=== PATIENT | male | born 1955 | race Caucasian/White ===

== ENCOUNTER 2018-02-11 22:09 | Emergency (ER) | payer MEDICARE ==
[~2018-02-11] VITALS: Ht 195.6 cm; Wt 115.7 kg
[~2018-02-11 22:09] MED LIST: ASPIRIN CHEW81 MG PO; B COMPLETE1 EACH PO; DAILY VITAMIN1 EAC3 PO; FENTANYL1 EAC1; LISINOPRIL2.5 MG PO; PERCOCET 10-321 EACH
[2018-02-11] MEDS ORDERED: KETOROLAC TROMETHAMINE 30 MG/ML VIAL IV STA (23:20)
[2018-02-11] MEDS ORDERED: PANTOPRAZOLE 40 MG 10ML VIAL IV STA (23:20)
--- NOTE | 2018-02-12 00:15 | Diagnostic Imaging Report ---
CHEST 2 VIEWS, Technique: CHEST 2 VIEWS Comparison: None Clinical history: Left upper quadrant abdominal pain DISCUSSION: Normal cardiomediastinal silhouette. Hyperinflation versus large lung volumes. No consolidation or edema. No pleural effusion or pneumothorax. IMPRESSION: No acute abnormality Signed by: Dr Thalia Perales MD on 02/12/2018 12:11 AM
--- NOTE | 2018-02-12 00:24 | Diagnostic Imaging Report ---
EXAM: CT ABDOMEN/PELVIS WO DATE: 02/11/2018 11:20 PM INDICATION: Abdominal pain left upper quadrant/flank COMPARISON: None TECHNIQUE: The abdomen and pelvis were scanned using a multidetector helical scanner. Coronal and sagittal reformations were obtained. Routine protocol performed. IV Contrast: 0 ml Isovue 300/370 FINDINGS: Lack of IV contrast decreases sensitivity in evaluating abdominal and pelvic organs. LOWER THORAX: Calcified left lung granuloma. Mild mosaic which can made seen with small airways disease. LIVER/BILIARY: Several liver cysts. No biliary ductal dilation GALLBLADDER: Unremarkable SPLEEN: Unremarkable PANCREAS: Unremarkable ADRENALS: No nodules KIDNEYS: No hydronephrosis or stones. Posterior 1.8 cm left renal cystic lesion. GI TRACT: No wall thickening or evidence of obstruction. Appendix is not visualized. VESSELS: Moderate atherosclerotic calcification. PERITONEUM/RETROPERITONEUM: No free air or fluid LYMPH NODES: No lymphadenopathy REPRODUCTIVE ORGANS/BLADDER: Prostate is normal in size. Mild circumferential bladder wall thickening. SOFT TISSUES: Unremarkable BONES: Postsurgical changes status post lumbar decompression, right iliac bone harvest and remaining fractured L2 particular screw. Minimal anterolisthesis of L3 over L4, retrolisthesis of L2 over L3. IMPRESSION: Mild nonspecific branch of bladder wall thickening, which can be seen with cystitis. Otherwise no acute abnormality. No nephroureterolithiasis. Signed by: Dr Thalia Perales MD on 02/12/2018 12:20 AM
[2018-02-12 00:28] LABS: BASOPHILS # (AUTO) 0.1 (0.0-0.1); BASOPHILS % 0.9 % (0.0-1.0); EOSINOPHILS # (AUTO) 0.3 (0.0-0.4); EOSINOPHILS % 3.2 % (0.0-6.0); HEMATOCRIT 40.4 % (38.2-49.6); HEMOGLOBIN 14.1 g/dL (14.0-18.0); LYMPHOCYTES % 33.7 % (18.0-39.1); MEAN CORPUSCULAR HEMOGLOBIN 32.7 pg (28-32); MEAN CORPUSCULAR HGB CONC 34.9 g/dL (31-35); MEAN CORPUSCULAR VOLUME 93.7 fL (81-99); MONOCYTES # (AUTO) 0.8 (0.2-0.8); MONOCYTES % 8.5 % (4.4-11.3); NEUTROPHILS # (AUTO) 4.7 (2.1-6.9); NEUTROPHILS % 53.2 % (38.7-80.0); PLATELET COUNT 258 x10e3/uL (140-360); RED BLOOD COUNT 4.31 x10e6/uL (4.3-5.7); RED CELL DISTRIBUTION WIDTH 12.7 % (11.7-14.4)
[2018-02-12 00:37] LABS: CLARITY,URINE CLEAR (CLEAR); COLOR,URINE YELLOW (YELLOW)
[2018-02-12 00:38] LABS: BILIRUBIN,URINE NEGATIVE (NEGATIVE); KETONES,URINE NEGATIVE (NEGATIVE); LEUKOCYTE ESTERASE ,URINE NEGATIVE (NEGATIVE); NITRITE,URINE NEGATIVE (NEGATIVE); PROTEIN,URINE DIPSTICK NEGATIVE (NEGATIVE); URINE UROBILINOGEN 0.2 mg/dL (0.2 - 1)
[2018-02-12 00:39] LABS: BACTERIA,URINE RARE /HPF; EPITHELIAL CELLS,URINE RARE /LPF; WBC,URINE (MAN) 0-5 /HPF (0-5)
[2018-02-12 00:42] LABS: INR 0.96
[2018-02-12 00:43] LABS: PARTIAL THROMBOPLASTIN TIME 32.3 seconds (23.8-35.5)
[2018-02-12 00:51] LABS: ALANINE AMINOTRANSFERASE 15 IU/L (0-55); ALBUMIN 4.3 g/dL (3.5-5.0); ALBUMIN/GLOBULIN RATIO 1.2 (0.8-2.0); ALKALINE PHOSPHATASE 71 IU/L (40-150); AMYLASE 41 U/L (25-125); ANION GAP 16.5 mmol/L (8-16); BLOOD UREA NITROGEN 15 mg/dL (7-26); BUN/CREATININE RATIO 15 (6-25); CARBON DIOXIDE 26 mmol/L (22-29); CHLORIDE 102 mmol/L (98-107); CREATINE KINASE 146 IU/L (30-200); EST GLOMERULAR FILTRATION RATE > 60 ML/MIN (60-); GLUCOSE 106 mg/dL (74-118); LIPASE 22 U/L (8-78); POTASSIUM 4.5 mmol/L (3.5-5.1); SODIUM 140 mmol/L (136-145)
[2018-02-12 02:02] VITALS: BP 147/98
== END 2018-02-12 02:07 | disposition home or self-care (01) ==
LOC: ER 22:09
DX: N23 Unspecified renal colic (principal); R31.29 Other microscopic hematuria; F17.200 Nicotine dependence, unspecified, uncomplicated; I11.0 Hypertensive heart disease with heart failure; I50.9 Heart failure, unspecified; I25.2 Old myocardial infarction; G89.29 Other chronic pain; M54.9 Dorsalgia, unspecified
CPT/HCPCS: 36415; 71046; 74176; 80053; 81001; 82150; 82550; 82553; 83690; 83735; 83880; 84484; 85025; 85610; 85730; 93005; 99284; J1885

== ENCOUNTER → 2018-03-02 | Outpatient (CLI) | payer MEDICARE ==
--- NOTE | 2018-03-02 18:04 | Diagnostic Imaging Report ---
PROCEDURE:TESTICULAR ULTRASOUND COMPARISON:None. INDICATIONS:EPIDIDYMITIS, GEN. HYPERHIDROSIS TECHNIQUE: Tinoco-scale and color doppler images of the testicles and scrotal contents were obtained. Duplex imaging with spectral waveform analysis was performed of the testicular arteries and veins. FINDINGS: RIGHT SCROTUM: Testicle: 4.7 x 2.1 x 3.1 cm. Normal echogenicity. Normal vascularity. No focal lesions or calcifications. Epididymal head: 1.4 x 1.2 x 2.1 cm. Heterogeneous echogenicity. No focal lesions or increased vascularity. Hydrocele: None Varicocele: A right varicocele is identified. LEFT SCROTUM: Testicle: 4.2 x 2.0 x 3.2 cm. Normal echogenicity. Normal vascularity. No focal lesions or microcalcifications. Epididymal head: 0.8 x 1.2 x 0.7 cm. 0.7 x 0.4 x 0.4 cm cystic, anechoic lesion in the epididymal head Hydrocele: None Varicocele: None. Normal bilateral arterial and venous flow is documented on color Doppler Overlying scrotal skin is unremarkable. No sonographic evidence of inguinal hernia bilaterally.. CONCLUSION: 1. Enlarged right epididymal head with heterogeneous echotexture. No focal lesions or increased vascularity are noted. This may represent a partially treated epididymitis. 2. Normal bilateral testicular size and echogenicity. No focal lesions. Normal bilateral arterial and venous flow, with low likelihood of torsion. 3. 0.7 cm left epididymal head cyst versus spermatocele. 4. Right varicocele. Henry Valero M.D. Dictated by: Henry Valero M.D. on 03/02/2018 at 18:06 Electronically approved by: Henry Valero M.D. on 03/02/2018 at 18:06
--- NOTE | 2018-03-02 18:04 | Diagnostic Imaging Report ---
PROCEDURE:TESTICULAR DOPPLER ULTRASOUND COMPARISON:None. INDICATIONS:EPIDIDYMITIS, GEN. HYPERHIDROSIS CONCLUSION: Please see previously dictated report under testicular ultrasound performed same date. Henry Valero M.D. Dictated by: Henry Valero M.D. on 03/02/2018 at 18:07 Electronically approved by: Henry Valero M.D. on 03/02/2018 at 18:07
== END ==
LOC: US 16:44
PROVIDERS: ATTEND Family Medicine
DX: N45.1 Epididymitis (principal); R61 Generalized hyperhidrosis
CPT/HCPCS: 76870; 93976

== ENCOUNTER → 2018-06-11 | Outpatient (CLI) | payer MEDICARE ==
[~2018-06-11] MED LIST changes: +FENTANYL CITRATE/PF 100MCG/2 ML INJ ONE; +GADOBENATE DIMEGLUMINE 1 ML IV ONE; +KETAMINE HCL INJ 50 MG/ML 10 ML VIAL ONE; +LACTATED RINGER'S 1,000 ML ONE; +LIDOCAINE HCL 2% LOCAL INJ 5 ML SDV VIAL INJ ONE; +MIDAZOLAM HCL 2 MG/2 ML VIAL ONE; +PROPOFOL IV EMULSION 10 MG/ML 20 ML VIAL ONE
[2018-06-11 14:33] LABS: BLOOD UREA NITROGEN 14 mg/dL (7-26); BUN/CREATININE RATIO 12 (6-25); CREATININE, SERUM 1.14 mg/dL (0.72-1.25); EST GLOMERULAR FILTRATION RATE > 60 ML/MIN (60-)
--- NOTE | 2018-06-12 08:02 | Diagnostic Imaging Report ---
History: Low back pain Comparison studies: Reconstructions of the CT of the abdomen on 02/11/2018 Technique: Sagittal, coronal and axial T2 , sagittal T1 and IR, axial spin density oblique. Intravenous contrast: None Findings: Number of lumbar vertebral bodies:5 Alignment: Mild straightening of the usual lordosis is associated with 3 mm retrolisthesis of L2 on L3 and 2 mm anterolisthesis of L3 on L4. No scoliosis Soft tissues: No T2 hyperintense inflammatory changes. Paraspinal muscles: Diffuse fatty infiltrated from L2 through S1.. Lower thoracic cord:Normal in signal and morphology. The tip of the conus is at mid and 1. Cauda equina: No masses. No arachnoiditis. Postsurgical changes: Bilateral laminectomy defects from L2 to L4. The remnant of a pedicular screw remains in place on the left at L2 The posterior elements are degenerated and/or fused from L2 through S1 (refer to the CT) Vertebrae: A T1 hyperintense hemangioma involves most of the L2 vertebral body to the right of midline. A smaller 5 mm hemangioma is seen along the superior endplate of T12. No compression fractures, infection or neoplasm. Degenerative changes: L1-L2: Mildly degenerated disc. Moderate spinal canal but mild bilateral foraminal stenosis due to a disc bulge. No disc herniation. There are small effusions in the mildly degenerated facet joints. L2-L3: Moderately degenerated disc. A 1 cm left subarticular disc protrusion indents the thecal sac and probably compresses the left L3 nerve root. The spinal canal has been decompressed. L3-L4: Mildly degenerated disc. The spinal canal has been decompressed. No significant foraminal stenosis. L4-L5: Mildly degenerated disc. The spinal canal has been decompressed. No significant foraminal stenosis. No disc herniation L5-S1: Moderately degenerated disc. Patent spinal canal and foramina. No disc herniation Partially visualized sacrum: No signal abnormalities. Incidental findings: Multiple nonenhancing T2 hyperintense cysts in the partially visualized kidneys. IMPRESSION: No previous lumbar spine MRIs available for comparison. 1. The discs are degenerated from L1 through S1. 2. Patient status post bilateral laminectomies from L2 to L4. The posterior elements are fused and degenerated from L2 to S1. A remnant of a pedicular screw remains in place on the left at L2. The spinal canal has been decompressed but there is grade 1 retrolisthesis of L2 on L3 and grade 1 anterolisthesis of L3 on L4. 3. Moderate spinal canal stenosis, mild bilateral foraminal stenosis and mild bilateral facet arthrosis with small effusions at L1-L2. 4. A 1 cm left subarticular protrusion at L2-3 indents the sac and compresses the left L3 nerve root. 5. No additional significant abnormalities Signed by: Dr. Girish Saldivar M.D. on 06/12/2018 7:59 AM
== END ==
LOC: MRI 13:27
PROVIDERS: ATTEND Family Medicine
DX: M47.15 Other spondylosis with myelopathy, thoracolumbar region (principal)
CPT/HCPCS: 36415; 72158; 82565; 84520; 93005; J2001; J2250; J7120

== ENCOUNTER → 2018-07-19 | Outpatient (CLI) | payer MEDICARE ==
[~2018-07-19] MED LIST changes: -FENTANYL CITRATE/PF 100MCG/2 ML INJ ONE; -GADOBENATE DIMEGLUMINE 1 ML IV ONE; -KETAMINE HCL INJ 50 MG/ML 10 ML VIAL ONE; -LACTATED RINGER'S 1,000 ML ONE; -LIDOCAINE HCL 2% LOCAL INJ 5 ML SDV VIAL INJ ONE; -MIDAZOLAM HCL 2 MG/2 ML VIAL ONE; -PROPOFOL IV EMULSION 10 MG/ML 20 ML VIAL ONE
--- NOTE | 2018-07-19 15:50 | Diagnostic Imaging Report ---
EXAMINATION: CT of the lumbar and thoracic spine HISTORY: Mid back and low back pain, left hip pain. Prior spine surgery COMPARISON: Lumbar spine MRI on 06/21/2018 and thoracic spine MRI on 03/21/2014. TECHNIQUE: Multidetector helical axial images were obtained without contrast from T1 to S1. The images were reconstructed using bone and soft tissue algorithms and were viewed in axial, sagittal, and coronal planes. Dose modulation, iterative reconstruction, and/or weight based adjustment of the mA/kV was utilized to reduce the radiation dose to as low as reasonably achievable. FINDINGS: Alignment: Normal thoracic kyphosis. Straightening of the lumbar lordosis. Grade 1 anterolisthesis at L3-L4 and retrolisthesis at L2-L3. S-shaped scoliosis mild midthoracic dextroscoliosis in, thoracolumbar levoscoliosis and again dextroscoliosis centered at L2. Vertebral bodies: Prominent subchondral sclerosis and endplate degenerative changes at L1-L2 and L2-L3. Paraspinal muscles: Severe atrophy of the paraspinal muscles from L3 to the sacrum. Degenerative changes: Thoracic spine: Facet arthrosis and scoliosis result in mild foraminal narrowing on the left side at T8-T9 and T9-T10. Lumbar spine: L1-L2: Decreased disc height, symmetric disc bulge, ligamenta flava thickening and facet arthrosis. Moderate spinal canal and moderate foraminal stenoses.. L2-L3: Decompressive laminectomy, bilateral facet arthrosis, grossly unchanged superiorly migrated left subarticular disc extrusion, better visualized on MRI dated 06/11/2018. . Persistent mild foraminal stenosis. Again a screw fragment is seen within the left pedicle/vertebral body of L2. No posterior fusion. L3-L4: Decompressive bunionectomy. Solid posterior fusion on the left . Disc bulge and facet arthrosis. Moderate left foraminal stenosis. L4-L5: Decompressive laminectomy. Interbody and posterior fusion. No stenoses. L5-S1: Solid interbody and posterior fusion. No stenoses. Radiopaque possible grafting material posterior to the bone graft is seen bilaterally. IMPRESSION: No significant interval change compared to MRI on 06/11/2018. 1. Mild foraminal stenoses on the left at T8-T9 and T9-T10 due to degenerative changes and scoliosis. 2. Thoracic and lumbar spine scoliosis as detail above. 3. Grade 1 retrolisthesis at L2-L3 and anterolisthesis at L3-L4. 4. Moderate degenerative spinal canal and foraminal stenosis at L1-L2. 5. Decompressive laminectomy from L2 to L4, solid interbody and posterior fusion at L4-L5 and L5-S1. No posterior fusion is seen at L2-L3. Signed by: Dr. Carissa Song M.D. on 07/19/2018 3:47 PM
== END ==
LOC: CT 13:05
PROVIDERS: ATTEND Neurological Surgery
DX: Z98.890 Other specified postprocedural states (principal); M51.26 Other intervertebral disc displacement, lumbar region
CPT/HCPCS: 72128; 72131

== ENCOUNTER → 2018-07-23 | Outpatient (CLI) | payer MEDICARE ==
--- NOTE | 2018-07-23 12:21 | Diagnostic Imaging Report ---
Exam: Left hip 2 views History: Left hip pain Comparison: None. Findings: There is normal bone mineralization. No acute displaced fracture or dislocation. Joint spaces preserved. No abnormal soft tissue calcification or soft tissue defect. No soft tissue swelling. Impression: 1. No acute osseous abnormality. Signed by: Dr. Scar Mccabe M.D. on 07/23/2018 12:17 PM
== END ==
LOC: RAD 11:03
PROVIDERS: ATTEND Family Medicine
DX: M25.552 Pain in left hip (principal)

== ENCOUNTER → 2018-07-29 | Outpatient (CLI) | payer MEDICARE ==
[~2018-07-29] MED LIST changes: +DIATRIZOATE MEGL/DIATRIZOA SOD 30 ML BTL PO ONE; +IOPAMIDOL 370 MG/ML 200 ML INFUS..BTL INJ ONE; +SODIUM CHLORIDE 0.9% 100 ML 100 ML ONE
[2018-07-29 15:54] LABS: BLOOD UREA NITROGEN 9 mg/dL (7-26); BUN/CREATININE RATIO 10 (6-25); CREATININE, SERUM 0.89 mg/dL (0.72-1.25); EST GLOMERULAR FILTRATION RATE > 60 ML/MIN (60-)
--- NOTE | 2018-07-29 16:50 | Diagnostic Imaging Report ---
EXAM: CT Abdomen and Pelvis WITH contrast INDICATION: Abdominal Pain post fall 2-3 months ago COMPARISON: None. TECHNIQUE: Abdomen and pelvis were scanned utilizing a multidetector helical scanner from the lung base to the pubic symphysis after administration of IV contrast. Coronal and sagittal reformations were obtained. Routine protocol was performed. Scan was performed when during portal venous phase. IV CONTRAST: 100 cc of Isovue 370 ORAL CONTRAST: Gastografin 30 cc/870 cc of water COMPLICATIONS: None RADIATION DOSE: Total DLP: 685.8 mGy*cm Estimated effective dose: (DLP x 0.015 x size factor) mSv CTDIvol has been reviewed. It is below the limits set by the Radiation Protocol Committee (RPC). FINDINGS: LINES and TUBES: None. LOWER THORAX: Unremarkable. HEPATOBILIARY: Subcentimeter hepatic hypodensities are too small to characterize, but likely represent cysts. No biliary ductal dilation. GALLBLADDER: No radio-opaque stones or sludge. No wall thickening. SPLEEN: No splenomegaly. PANCREAS: No focal masses or ductal dilatation. ADRENALS: No adrenal nodules KIDNEYS/URETERS: Kidneys enhance symmetrically. No evidence of hydronephrosis, solid mass, or stone. A 1.8 cm left renal cystic lesion (10 HU) is noted. GI TRACT: No evidence of wall thickening or distension. PELVIC ORGANS/BLADDER: Unremarkable. LYMPH NODES: No lymphadenopathy. VESSELS: Moderate atherosclerotic calcifications of the abdominal aorta and branch vessels. PERITONEUM / RETROPERITONEUM: No free air or fluid. BONES AND SOFT TISSUES: No acute bony abnormality. Similar appearance of postsurgical findings status post lumbar decompression, right iliac bone harvest and remaining fractured L2 particular screw. There is minimal anterolisthesis of L3 over L4 and retrolisthesis of L2 over L3. CONCLUSION: No acute findings in the abdomen or pelvis. Signed by: Dr. Adrian Almonte MD on 07/29/2018 4:47 PM
== END ==
LOC: CT 15:11
PROVIDERS: ATTEND Family Medicine
DX: R10.30 Lower abdominal pain, unspecified (principal)
CPT/HCPCS: 36415; 74177; 82565; 84520; Q9967

== ENCOUNTER 2018-10-19 13:21 | Observation (INO) | payer MEDICARE ==
[~2018-10-19] VITALS: Ht 195.6 cm; Wt 108.9 kg
[~2018-10-19 13:21] MED LIST changes: -DIATRIZOATE MEGL/DIATRIZOA SOD 30 ML BTL PO ONE; -IOPAMIDOL 370 MG/ML 200 ML INFUS..BTL INJ ONE; -PERCOCET 10-321 EACH; +PERCOCET 10-321 EACH PO; -SODIUM CHLORIDE 0.9% 100 ML 100 ML ONE
--- OUTSIDE RECORDS SUMMARY | 2018-10-19 13:24 | XMS REPORT | Summary of Care ---
Author Author [facility] [place] Organization [facility] [place] Address Unknown Phone Unavailable Encounter [facility](FIN) [id number] Date(s): 11/26/17 - 11/26/17 [facility] [place] [address] [place] [phone] Encounter Diagnosis Postlaminectomy syndrome, not elsewhere classified (Final) - 12/01/17 Other spondylosis with radiculopathy, lumbar region (Final) - Spinal stenosis, lumbar region without neurogenic claudication (Final) - Spinal stenosis, lumbosacral region (Final) - Spondylolisthesis, lumbar region (Final) - Other specified disorders of bone density and structure, other site (Final) - Discharge Disposition: Home or Self Care Attending Physician: Melquiades Burnett MD Vital Signs No data available for this section Problem List No data available for this section Allergies, Adverse Reactions, Alerts No data available for this section Medications No data available for this section Results No data available for this section Immunizations No data available for this section Procedures No data available for this section Social History No data available for this section Assessment and Plan No data available for this section
--- OUTSIDE RECORDS SUMMARY | 2018-10-19 13:24 | XMS REPORT | Continuity of Care Document ---
Author Author [facility] Interface Address Unknown Phone Unavailable Problems Problem Status Onset Date Classification Date Reported Comments Source Postlaminectomy syndrome, not elsewhere classified 12/02/2017 03/04/2018 [facility] [place] M54.17 - RADICULOPATHY, LUMBOSACRAL REG Active 11/23/2017 [facility] [place] Other spondylosis with radiculopathy, lumbar region 03/04/2018 [facility] [place] Spinal stenosis, lumbar region without neurogenic claudication 03/04/2018 [facility] [place] Spinal stenosis, lumbosacral region 03/04/2018 [facility] [place] Spondylolisthesis, lumbar region 03/04/2018 [facility] [place] Other specified disorders of bone density and structure, other site 03/04/2018 [facility] [place] Medications Medication Details Route Status Patient Instructions Ordering Provider Order Date Source Aspirin (Aspirin Chew) 81 Mg Chew Daily [facility] Fentanyl 1 Each Patch.td72 as needed for Pain [facility] Lisinopril 2.5 Mg Tablet Daily [facility] Multivitamin (Daily Vitamin) 1 Each Tablet Daily [facility] Oxycodone Hcl/Acetaminophen (Percocet 10-325 Mg Tablet) 1 Each Tablet as needed for Pain [facility] Vitamin B Complex (B Complete) 1 Each Tablet Daily [facility] Allergies, Adverse Reactions, Alerts Substance Category Reaction Severity Reaction type Status Date Reported Comments Source No Known Drug Allergies Mild Allergy to Substance Active 09/28/2014 [facility] Immunizations Immunization Date Given Site Status Last Updated Comments Source Results Order Name Results Value Reference Range Date Interpretation Comments Source Activated partial thromboplastin time (aPTT) in platelet poor plasma bycoagulation assay Activated partial thromboplastin time (aPTT) in platelet poor plasma bycoagulation assay 32.3 23.8 - 35.5 02/12/2018 [facility] Automated blood basophil count (count/volume) Automated blood basophil count (count/volume) 0.1 0.0 - 0.1 02/12/2018 [facility] Automated blood basophil count as percentage of total leukocytes Automated blood basophil count as percentage of total leukocytes 0.9 0.0 - 1.0 02/12/2018 [facility] Automated blood eosinophil count Automated blood eosinophil count 0.3 0.0 - 0.4 02/12/2018 [facility] Automated blood eosinophil count as percentage of total leukocytes Automated blood eosinophil count as percentage of total leukocytes 3.2 0.0 - 6.0 02/12/2018 [facility] Automated blood hematocrit (volume fraction) Automated blood hematocrit (volume fraction) 40.4 38.2 - 49.6 02/12/2018 [facility] Automated blood lymphocyte count as percentage ot total leukocytes Automated blood lymphocyte count as percentage ot total leukocytes 33.7 18.0 - 39.1 02/12/2018 [facility] Automated blood monocyte count as percentage of total leukocytes Automated blood monocyte count as percentage of total leukocytes 8.5 4.4 - 11.3 02/12/2018 [facility] Automated blood neutrophil count Automated blood neutrophil count 4.7 2.1 - 6.9 02/12/2018 [facility] Automated blood platelet count (count/volume) Automated blood platelet count (count/volume) 258 140 - 360 02/12/2018 [facility] Automated blood segmented neutrophil count as percentage of total leukocytes Automated blood segmented neutrophil count as percentage of total leukocytes 53.2 38.7 - 80.0 02/12/2018 [facility] Automated erythrocyte mean corpuscular hemoglobin (mass per erythrocyte) Automated erythrocyte mean corpuscular hemoglobin (mass per erythrocyte) 32.7 28 - 32 02/12/2018 [facility] Automated erythrocyte mean corpuscular hemoglobin concentration measurement (mass/volume) Automated erythrocyte mean corpuscular hemoglobin concentration measurement (mass/volume) 34.9 31 - 35 02/12/2018 [facility] Automated erythrocyte mean corpuscular volume Automated erythrocyte mean corpuscular volume 93.7 81 - 99 02/12/2018 [facility] Automated urine sediment leukocyte count by microscopy (number/high power field) Automated urine sediment leukocyte count by microscopy (number/high power field) null 0 - 5 02/12/2018 [facility] Bacteria detection in urine sediment by light microscopy Bacteria detection in urine sediment by light microscopy RARE NONE 02/12/2018 [facility] Blood erythrocytes automated count (number/volume) Blood erythrocytes automated count (number/volume) 4.31 4.3 - 5.7 02/12/2018 [facility] Blood hemoglobin measurement (moles/volume) Blood hemoglobin measurement (moles/volume) 14.1 14.0 - 18.0 02/12/2018 [facility] Blood leukocytes automated count (number/volume) Blood leukocytes automated count (number/volume) 8.83 4.8 - 10.8 02/12/2018 [facility] Blood lymphocytes count (number/volume) Blood lymphocytes count (number/volume) 3.0 1.0 - 3.2 02/12/2018 [facility] Blood monocytes automated count (number/volume) Blood monocytes automated count (number/volume) 0.8 0.2 - 0.8 02/12/2018 [facility] Epithelial cells detection in urine sediment by light microscopy Epithelial cells detection in urine sediment by light microscopy RARE NONE 02/12/2018 [facility] Erythrocytes detection in urine sediment by light microscopy Erythrocytes detection in urine sediment by light microscopy null 0 - 5 02/12/2018 [facility] Estimated glomerular filtration rate (GFR) determination Estimated glomerular filtration rate (GFR) determination null 60 02/12/2018 [facility] Glucose measurement Glucose measurement 106 74 - 118 02/12/2018 [facility] INR in Platelet poor plasma by Coagulation assay INR in Platelet poor plasma by Coagulation assay 0.96 02/12/2018 [facility] Plasma globulin measurement (mass/volume) Plasma globulin measurement (mass/volume) 3.5 2.3 - 3.5 02/12/2018 [facility] Prothrombin time (PT) in platelet poor plasma by coagulation assay Prothrombin time (PT) in platelet poor plasma by coagulation assay 12.0 11.9 - 14.5 02/12/2018 [facility] Serum or plasma alanine aminotransferase measurement (enzymatic activity/volume) Serum or plasma alanine aminotransferase measurement (enzymatic activity/volume) 15 0 - 55 02/12/2018 [facility] Serum or plasma albumin measurement (mass/volume) Serum or plasma albumin measurement (mass/volume) 4.3 3.5 - 5.0 02/12/2018 [facility] Serum or plasma albumin/globulin mass ratio Serum or plasma albumin/globulin mass ratio 1.2 0.8 - 2.0 02/12/2018 [facility] Serum or plasma alkaline phosphatase measurement (enzymatic activity/volume) Serum or plasma alkaline phosphatase measurement (enzymatic activity/volume) 71 40 - 150 02/12/2018 [facility] Serum or plasma amylase measurement (enzymatic activity/volume) Serum or plasma amylase measurement (enzymatic activity/volume) 41 25 - 125 02/12/2018 [facility] Serum or plasma anion gap Serum or plasma anion gap 16.5 8 - 16 02/12/2018 [facility] Serum or plasma calcium measurement (mass/volume) Serum or plasma calcium measurement (mass/volume) 10.0 8.4 - 10.2 02/12/2018 [facility] Serum or plasma carbon dioxide, total measurement (moles/volume) Serum or plasma carbon dioxide, total measurement (moles/volume) 26 22 - 29 02/12/2018 [facility] Serum or plasma chloride measurement (moles/volume) Serum or plasma chloride measurement (moles/volume) 102 98 - 107 02/12/2018 [facility] Serum or plasma creatine kinase MB measurement (mass/volume) Serum or plasma creatine kinase MB measurement (mass/volume) 1.90 0 - 5.0 02/12/2018 [facility] Serum or plasma creatine kinase measurement (enzymatic activity/volume) Serum or plasma creatine kinase measurement (enzymatic activity/volume) 146 30 - 200 02/12/2018 [facility] Serum or plasma creatinine measurement (mass/volume) Serum or plasma creatinine measurement (mass/volume) 1.00 0.72 - 1.25 02/12/2018 [facility] Serum or plasma lipase measurement (enzymatic activity/volume) Serum or plasma lipase measurement (enzymatic activity/volume) 22 8 - 78 02/12/2018 [facility] Serum or plasma magnesium measurement (mass/volume) Serum or plasma magnesium measurement (mass/volume) 2.0 1.3 - 2.1 02/12/2018 [facility] Serum or plasma potassium measurement (moles/volume) Serum or plasma potassium measurement (moles/volume) 4.5 3.5 - 5.1 02/12/2018 [facility] Serum or plasma protein measurement (mass/volume) Serum or plasma protein measurement (mass/volume) 7.8 6.5 - 8.1 02/12/2018 [facility] Serum or plasma sodium measurement (moles/volume) Serum or plasma sodium measurement (moles/volume) 140 136 - 145 02/12/2018 [facility] Serum or plasma total bilirubin measurement (mass/volume) Serum or plasma total bilirubin measurement (mass/volume) 0.5 0.2 - 1.2 02/12/2018 [facility] Serum or plasma urea nitrogen measurement (mass/volume) Serum or plasma urea nitrogen measurement (mass/volume) 15 7 - 26 02/12/2018 [facility] Serum or plasma urea nitrogen/creatinine mass ratio Serum or plasma urea nitrogen/creatinine mass ratio 15 6 - 25 02/12/2018 [facility] Specific gravity of Urine by Test strip Specific gravity of Urine by Test strip 1.020 1.010 - 1.025 02/12/2018 [facility] Troponin I measurement by highly sensitive enzyme immunoassay Troponin I measurement by highly sensitive enzyme immunoassay null 0 - 0.300 02/12/2018 [facility] Urine clarity Urine clarity CLEAR CLEAR 02/12/2018 [facility] Urine color determination Urine color determination YELLOW YELLOW 02/12/2018 [facility] Urine erythrocytes detection Urine erythrocytes detection TRACE NEGATIVE 02/12/2018 [facility] Urine glucose detection Urine glucose detection NEGATIVE NEGATIVE 02/12/2018 [facility] Urine ketones detection by automated test strip Urine ketones detection by automated test strip NEGATIVE NEGATIVE 02/12/2018 [facility] Urine leukocyte esterase detection by dipstick Urine leukocyte esterase detection by dipstick NEGATIVE NEGATIVE 02/12/2018 [facility] Urine nitrite detection Urine nitrite detection NEGATIVE NEGATIVE 02/12/2018 [facility] Urine pH measurement by automated test strip Urine pH measurement by automated test strip 6.5 5 - 7 02/12/2018 [facility] Urine protein measurement by test strip (mass/volume) Urine protein measurement by test strip (mass/volume) NEGATIVE NEGATIVE 02/12/2018 [facility] Urine total bilirubin measurement (mass/volume) Urine total bilirubin measurement (mass/volume) NEGATIVE NEGATIVE 02/12/2018 [facility] Urine urobilinogen measurement by test strip (mass/volume) Urine urobilinogen measurement by test strip (mass/volume) 0.2 0.2 - 1 02/12/2018 [facility] Red Cell Distribution Width 12.7 11.7 - 14.4 02/12/2018 [facility] IM GRANULOCYTES % 0.5 0.0 - 1.0 02/12/2018 [facility] Absolute Immature Granulocyte (auto 0.04 0 - 0.1 02/12/2018 [facility] Aspartate Amino Transf (AST/SGOT) 16 5 - 34 02/12/2018 [facility] B-Type Natriuretic Peptide null 0 - 100 02/12/2018 [facility] Spine lumbar wo contrast CT Spine lumbar wo contrast CT Spine lumbar wo contrast CT 11/26/2017 9:51 [employer] CLINICAL INDICATION: - M54.17 Radiculopathy, lumbosacral region; M96.1 Postlaminectomy syndrome, not elsewhere classified; TECHNIQUE: Contiguous axial CT images of the lumbar spine. Intravenous contrast: None. DLP 1360 mGy-cm. This exam was performed according to our department dose optimization protocol, which includes automated exposure control, adjustment of the mA and/or kV according to patient size and/or use of iterative reconstruction technique. COMPARISON: None. FINDINGS: Vertebrae: Mild S-shaped curvature of the lumbar spine is present. Osteopenia is present. Right L1 rudimentary rib is present. L2-L5 laminectomies have been performed, with fusion of the facet joints by bone graft. L2-L3 2 mm anterolisthesis is present, with moderate facet arthrosis and 3 mm disc bulge with mild to moderate central canal stenosis and moderate to severe bilateral foraminal stenosis. Approximately 2.7 cm length left L2 pedicle base and vertebral centrum retained screw piece is identified. L2 vertebral body 3.9 x 3.4 cm osseous hemangioma is present. L2-L3 4 mm retrolisthesis is present with disc vacuum phenomenon. No thecal sac stenosis is present due to the laminectomy. Severe bilateral foraminal stenosis is present. L3-L4 4 mm anterolisthesis is present. No central canal stenosis. Moderate left and mild right foraminal stenosis. L4-L5 significant disc narrowing is present. No central canal stenosis. Mild bilateral foraminal stenosis due to osteophyte encroachment. L5-S1 significant disc narrowing is present. No central canal or foraminal stenosis. Other: Significant abdominal aortic atherosclerotic calcifications are present. IMPRESSION: 1. L2-L5 laminectomies and fusion of facet joints. Retained left L2 pedicle base and vertebral centrum screw piece as above. 2. L2-L3, L3-L4 listhesis as above. 3. L2-L3 severe bilateral foraminal stenosis. L3-L4 moderate left foraminal stenosis. 4. Osteopenia. Atherosclerosis. 11/26/2017 - - Read by: José Miguel Beck MD Dictated Date/time: 11/26/17 11:22 Electronically Signed by: José Miguel Beck MD 11/26/17 15:28 FINAL REPORT PARAM[facility] Yip Vital Signs Vital Sign Value Date Comments Source Encounters Location Location Details Encounter Type Encounter Number Reason For Visit Attending Provider ADM Date DC Date Status Source [id number] Melqui[facility] Dong Jr 11/26/2017 11/27/2017 [facility] Yip Departed Emergency Room [id number] SIRISHA HA MD 02/11/2018 02/12/2018 [facility] Outpatient [id number] [facility] 07/06/2018 Active [facility] Outpatient [id number] [facility] 08/17/2018 Active [facility] Procedures Procedure Code Date Perfomer Comments Source CT of abdomen and pelvis without contrast [id number] 02/11/2018 [facility] X-ray of chest, two views [id number] 02/11/2018 [facility]
--- OUTSIDE RECORDS SUMMARY | 2018-10-19 13:24 | XMS REPORT ---
Author Author [facility] Address Unknown Phone Unavailable Care Team Providers Care Bureau Director Name Role Phone Heraclio POSADA Unavailable Unavailable ANGELIQUE GALLAGHER Unavailable Unavailable Grayson HA Unavailable Unavailable Problems This patient has no known problems. Allergies, Adverse Reactions, Alerts This patient has no known allergies or adverse reactions. Medications This patient has no known medications. Results Test Description Test Time Test Comments Text Results Atomic Results Result Comments CT ABDOMEN/PELVIS W 2018-07-29 16:32:[address] [address] Patient Name: LAKISHA VELAZQUEZ MR #: [id number] : 1955 Age/Sex: 62/M Req #: [id number] Adm Physician: Ordered by: MALIK POSADA MD Report #: [id number] Location: CT Room/Bed: Procedure: [id number] CT/CT ABDOMEN/PELVIS W Exam Date: 07/29/18 Exam Time: 1618 REPORT STATUS: Signed EXAM: CT Abdomen and Pelvis WITH contrast INDIC ATION: Abdominal Pain post fall 2-3 months ago COMPARISON: None. TECHNIQUE: Abdomen and pelvis were scanned utilizing a multidetector helical scanner from the lung base to the pubic symphysis after administration of IV contrast. Coronal and sagittal reformations were obtained. Routine protocol was performed. Scan was performed when during portal venous phase. IV CONTRAST: 100 cc of Isovue 370 ORAL CONTRAST: Gastografin 30 cc/870 cc of water COMPLICATIONS: None RADIATION DOSE: Total DLP: 685.8 mGy*cm Estimated effective dose: (DLP x 0.015 x size factor) mSv CTDIvol has been reviewed. It is below the limits set by the Radiation Protocol Committee (RPC). FINDINGS: LINES and TUBES: None. LOWER THORAX: Unremarkable. HEPATOBILIARY: Subcentimeter hepatic hypodensities are too small to characterize, but likely represent cysts. No biliary ductal dilation. GALLBLADDER: No radio-opaque stones or sludge. No wall thickening. SPLEEN: No splenomegaly. PANCREAS: No focal masses or ductal dilatation. ADRENALS: No adrenal nodules KIDNEYS/URETERS: Kidneys enhance symmetrically. No evidence of hydronephrosis, solid mass, or stone. A 1.8 cm left renal cystic lesion (10 HU) is noted. GI TRACT: No evidence of wall thickening or distension. PELVIC ORGANS/BLADDER: Unremarkable. LYMPH NODES: No lymphadenopathy. VESSELS: Moderate atherosclerotic calcifications of the abdominal aorta and branch vessels. PERITONEUM / RETROPERITONEUM: No free air or fluid. B ONES AND SOFT TISSUES: No acute bony abnormality. Similar appearance of postsurgical findings status post lumbar decompression, right iliac bone harvest and remaining fractured L2 particular screw. There is minimal anterolisthesis of L3 over L4 and retrolisthesis of L2 over L3. CONCLUSION: No acute findings in the abdomen or pelvis. Signed by: Dr. Ashleigh Alford MD on 07/29/2018 4:47 PM Dictated By: ASHLEIGH ALFORD MD 46 Transcribed By: JUAN on 07/29/181646 COPY TO: MALIK POSADA MD HIP LEFT 2-3 VW (+/- PELVIS) 2018-07-23 12:14:00 [place] [address] Patient Name: LAKISHA VELAZQUEZ MR #: [id number] : 1955 Age/Sex: 62/M Req #: [id number] Adm Physician: Ordered by: MALIK POSADA MD Report #: [id number] Location: RAD Room/Bed: Procedure: [id number] DX/HIP LEFT 2-3 VW (+/- PELVIS) Exam Date: Exam Time: REPORT STATUS: Signed Exam: Left hip 2 views History: Left hip pain Comparison: None. Findings: There is normal bone mineralization. No acute displaced fracture or dislocation. Joint spaces preserved. No abnormal soft tissue calcification or soft tissue defect. No soft tissue swelling. Impression: 1. No acute osseous abnormality. Signed by: Dr. Zoie Cox M.D. on 07/23/2018 12:17 PM Dictated By: ZOIE COX MD 16 Transcribed By: JUAN on 07/23/181216 COPY TO: MALIK POSADA MD CT LUMBAR SPINE WO 2018-07-19 15:20:00 [place] [address] Patient Name: LAKISHA VELAZQUEZ MR #: [id number] : 1955 Age/Sex: 62/M Req #: [id number] Adm Physician: Ordered by: ANGELIQUE GALLAGHER MD Report #: [id number] Location: CT Room/Bed: Procedure: [id number] CT/CT LUMBAR SPINE WO Exam Date: 07/19/18 Exam Time: 1334 REPORT STATUS: Signed EXAMINATION: CT of the lumbar and thoracic spine HISTORY: Mid back and low back pain, left hip pain. Prior spine surgery COMPARISON: Lumbar spine MRI on 06/21/2018 and thoracic spine MRI on 03/21/2014. TECHNIQUE: Multidetector helical axial images were obtained without contrast from T1 to S1. The images were reconstructed using bone and soft tissue algorithms and were viewed in axial, sagittal, and coronal planes. Dose modulation, iterative reconstruction, and/or weight based adjustment of the mA/kV was utilized to reduce the radiation dose to as low as reasonably achievable. FINDINGS: Alignment: Normal thoracic kyphosis. Straightening of the lumbar lordosis. Grade 1 anterolisthesis at L3-L4 and retrolisthesis at L2-L3. S- shaped scoliosis mild midthoracic dextroscoliosis in, thoracolumbar levo scoliosis and again dextroscoliosis centered at L2. Vertebral bodies: Prominent subchondral sclerosis and endplate degenerative changes at L1-L2 and L2-L3. Paraspinal muscles: Severe atrophy of the paraspinal muscles from L3 to the sacrum. Degenerative changes: Thoracic spine: Facet arthrosis and scoliosis result in mild foraminal narrowing on the left side at T8-T9 and T9-T10. Lumbar spine: L1-L2: Decreased disc height, symmetric disc bulge, ligamenta flava thickening and facet arthrosis. Moderate spinal canal and moderate foraminal stenoses.. L2-L3: Decompressive laminectomy, bilateral facet arthrosis, grossly unchanged superiorly migrated left subarticular disc extrusion, better visualized on MRI dated 06/11/2018. . Persistent mild foraminal stenosis. Again a screw fragment is seen within the left pedicle/vertebral body of L2. No posterior fusion. L3-L4: Decompressive bunionectomy. Solid posterior fusion on the left . Disc bulge and facet arthrosis. Moderate left foraminal stenosis. L4-L5: Decompressive laminectomy. Interbody and posterior fusion. No stenoses. L5-S1: Solid interbody and posterior fusion. No stenoses. Radiopaque possible grafting material posterior to the bone graft is seen bilaterally. IMPRESSION: No significant interval change compared to MRI on 06/11/2018. 1. Mild foraminal stenoses on the left at T8-T9 and T9-T10 due to degenerative changes and scoliosis. 2. Thoracic and lumbar spine scoliosis as detail above. 3. Grade 1 retrolisthesis at L2-L3 and anterolisthesis at L3-L4. 4. Moderate degenerative spinal canal and foraminal stenosis at L1-L2. 5. Decompressive laminectomy from L2 to L4, solid interbody and posterior fusion at L4-L5 and L5-S1. No posterior fusion is seen at L2-L3. Signed by: Dr. Akosua Song M.D. on 07/19/2018 3:47 PM Dictated By: AKOSUA SONG MD 46 Transcribed By: JUAN on 07/19/181546 COPY TO: ANGELIQUE GALLAGHER MD CT THORACIC SPINE WO 2018-07-19 15:20:00 [place] [address] Patient Name: LAKISHA VELAZQUEZ MR #: [id number] : 1955 Age/Sex: 62/M Req #: [id number] Adm Physician: Ordered by: ANGELIQUE GALLAGHER MD Report #: [id number] Location: CT Room/Bed: Procedure: [id number] CT/CT THORACIC SPINE WO Exam Date: 07/19/18 Exam Time: 1334 REPORT STATUS: Signed EXAMINATION: CT of the lumbar and thoracic spine HISTORY: Mid back and low back pain, left hip pain. Prior spine surgery COMPARISON: Lumbar spine MRI on 06/21/2018 and thoracic spine MRI on 03/21/2014. TECHNIQUE: Multidetector helical axial images were obtained without contrast from T1 to S1. The images were reconstructed using bone and soft tissue algorithms and were viewed in axial, sagittal, and coronal planes. Dose modulation, iterative reconstruction, and/or weight based adjustment of the mA/kV was utilized to reduce the radiation dose to as low as reasonably achievable. FINDINGS: Alignment: Normal thoracic kyphosis. Straightening of the lumbar lordosis. Grade 1 anterolisthesis at L3-L4 and retrolisthesis at L2-L3. S- shaped scoliosis mild midthoracic dextroscoliosis in, thoracolumbar le voscoliosis and again dextroscoliosis centered at L2. Vertebral bodies: Prominent subchondral sclerosis and endplate degenerative changes at L1-L2 and L2-L3. Paraspinal muscles: Severe atrophy of the paraspinal muscles from L3 to the sacrum. Degenerative changes: Thoracic spine: Facet arthrosis and scoliosis result in mild foraminal narrowing on the left side at T8-T9 and T9-T10. Lumbar spine: L1-L2: Decreased disc height, symmetric disc bulge, ligamenta flava thickening and facet arthrosis. Moderate spinal canal and moderate foraminal stenoses.. L2-L3: Decompressive laminectomy, bilateral facet arthrosis, grossly unchanged superiorly migrated left subarticular disc extrusion, better visualized on MRI dated 06/11/2018. . Persistent mild foraminal stenosis. Again a screw fragment is seen within the left pedicle/vertebral body of L2. No posterior fusion. L3-L4: Decompressive bunionectomy. Solid posterior fusion on the left . Disc bulge and facet arthrosis. Moderate left foraminal stenosis. L4-L5: Decompressive laminectomy. Interbody and posterior fusion. No stenoses. L5-S1: Solid interbody and posterior fusion. No stenoses. Radiopaque possible grafting material posterior to the bone graft is seen bilaterally. IMPRESSION: No significant interval change compared to MRI on 06/11/2018. 1. Mild foraminal stenoses on the left at T8-T9 and T9-T10 due to degenerative changes and scoliosis. 2. Thoracic and lumbar spine scoliosis as detail above. 3. Grade 1 retrolisthesis at L2-L3 and anterolisthesis at L3-L4. 4. Moderate degenerative spinal canal and foraminal stenosis at L1-L2. 5. Decompressive laminectomy from L2 to L4, solid interbody and posterior fusion at L4-L5 and L5-S1. No posterior fusion is seen at L2-L3. Signed by: Dr. Akosua Song M.D. on 07/19/2018 3:47 PM Dictated By: AKOSUA SONG MD 46 Transcribed By: JUAN on 07/19/181546 COPY TO: ANGELIQUE GALLAGHER MD MRI SPINE LUMBAR WOW 2018-06-12 07:43:00 [place] [address] Patient Name: LAKISHA VELAZQUEZ MR #: [id number] : 1955 Age/Sex: 62/M Req #: [id number] Adm Physician: Ordered by: MALIK POSADA MD Report #: [id number] Location: MRI Room/Bed: Procedure: [id number] MRI/MRI SPINE LUMBAR WOW Exam Date: Exam Time: REPORT STATUS: Signed History: Low back pain Comparison studies: Reconstructions of the CT of the abdomen on 02/11/2018 Technique: Sagittal, coronal and axial T2 , sagittal T1 and IR, axial spin density oblique. Intravenous contrast: None Findings: Number of lumbar vertebral bodies:5 Alignment: Mild straightening of the usual lordosis is associated with 3 mm retrolisthesis of L2 on L3 and 2 mm anterolisthesis of L3 on L4. No scoliosis Soft tissues: No T2 hyperintense inflammatory changes. Paraspinal muscles: Diffuse fatty infiltrated from L2 through S1.. Lower thoracic cord:Normal in signal and morphology. The tip of the conus is at mid and 1. Cauda equina: No masses. No arachnoiditis. Postsurgical changes: Bilateral laminectomy defects from L2 to L4. The remnant of a pedicular screw remains in place on the left at L2 The posterior elements are degenerated and/or fused from L2 through S1 (refer to the CT) Vertebrae: A T1 hyperintense hemangioma involves most of the L2 vertebral body to the right of midline. A smaller 5 mm hemangioma is seen along the superior endplate of T12. No compression fractures, infection or neoplasm. Degenerative changes: L1-L2: Mildly degener ated disc. Moderate spinal canal but mild bilateral foraminal stenosis due to a disc bulge. No disc herniation. There are small effusions in the mildly degenerated facet joints. L2-L3: Moderately degenerated disc. A 1 cm left subarticular disc protrusion indents the thecal sac and probably compresses the left L3 nerve root. The spinal canal has been decompressed. L3-L4: Mildly degenerated disc. The spinal canal has been decompressed. No significant foraminal stenosis. L4-L5: Mildly degenerated disc. The spinal canal has been decompressed. No significant foraminal stenosis. No disc herniation L5-S1: Moderately degenerated disc. Patent spinal canal and foramina. No disc herniation Partially visualized sacrum: No signal abnormalities. Incidental findings: Multiple nonenhancing T2 hyperintense cysts in the partially visualized kidneys. IMPRESSION: No previous lumbar spine MRIs available for comparison. 1. The discs are degenerated from L1 through S1. 2. Patient status post bilateral laminectomies from L2 to L4. The posterior elements are fused and degenerated from L2 to S1. A remnant of a pedicular screw remains in place on the left at L2. The spinal canal has been decompressed but there is grade 1 retrolisthesis of L2 on L3 and grade 1 anterolisthesis of L3 on L4. 3. Moderate spinal canal sten osis, mild bilateral foraminal stenosis and mild bilateral facet arthrosis with small effusions at L1-L2. 4. A 1 cm left subarticular protrusion at L2-3 indents the sac and compresses the left L3 nerve root. 5. No additional significant abnormalities Signed by: Dr. Girish Saldivar M.D. on 06/12/2018 7:59 AM Dictated By: GIRISH SALDIVAR MD, MD [id number] Transcribed By: JUAN on 06/12/18 1378 COPY TO: MALIK POSADA MD [place] [address] Patient Name: LAKISHA VELAZQUEZ MR #: [id number] : 1955 Age/Sex: 62/M Re #: [id number] [facility] [place] Physician: Ordered by: MALIK POSADA MD Report #: [id number] Location: Room/Bed: Procedure: [id number] US/US TESTICULAR Exam Date: Exam Time: REPORT STATUS: Signed PROCEDURE: TESTICULAR ULTRASOUND COMPARISON: None. INDICATIONS: EPIDIDYMITIS, GEN. HYPERHIDROSIS TECHNIQUE: Tinoco-scale and color doppler images of the testicles and scrotal contents were obtained. Duplex imaging with spectral waveform analysis was performed of the testicular arteries and veins. FINDINGS: RIGHT SCROTUM: Testicle: 4.7 x 2.1 x 3.1 cm. Normal echogenicity. Normal vascularity. No focal lesions or calcifications. Epididymal head: 1.4 x 1.2 x 2.1 cm. Heterogeneous echogenicity. No focal lesions or increased vascularity. Hydrocele: None Varicocele: A right varicocele is identified. LEFT SCROTUM: Testicle: 4.2 x 2.0 x 3.2 cm. Normal echogenicity. Normal vascularity. No focal lesions or microcalcifications. Epididymal head: 0.8 x 1.2 x 0.7 cm. 0.7 x 0.4 x 0.4 cm cystic, anechoic lesion in the epididymal head Hydrocele: None Varicocele: None. Normal bilateral arterial and venous flow is documented on color Doppler Overlying scrotal skin is unremarkable. No sonographic evidence of inguinal hernia bilaterally.. CONCLUSION: 1. Enlarged right epididymal head with heterogeneous echotexture. No focal lesions or increased vascularity are noted. This may represent a partially treated epididymitis. 2. Normal bilateral testicular size and echogenicity. No focal lesions. Normal bilateral arterial and venous flow, with low likelihood of torsion. 3. 0.7 cm left epididymal head cyst versus spermatocele. 4. Right varicocele. Henry Valero M.D. Dictated by: Henry Valero M.D. on 03/02/2018 at 18:06 Kiersten ctronically approved by: Henry Valero M.D. on 03/02/2018 at 18:06 Dictated By: HERNY VALERO MD 05 Transcribed By: HELENA on 03/02/181805 COPY TO: MALIK POSADA MD US TESTICULAR DOPPLER LTD [place] [address] Patient Name: LAKISHA VELAZQUEZ MR #: [id number] : 1955 Age/Sex: 62/M Req #: [id number] Adm Physician: Ordered by: MALIK POSADA MD Report #: [id number] Location: US Room/Bed: Procedure: [id number] US/US TESTICULAR DOPPLER LTD Exam Date: Exam Time: REPORT STATUS: Signed PROCEDURE: TESTICULAR DOPPLER ULTRASOUND COMPARISON: None. INDICATIONS: EPIDIDYMITIS, GEN. HYPERHIDROSIS CONCLUSION: Please see previously dictated report under testicular ultrasound performed same date. Henry Valero M.D. Dictated by: Henry Valero M.D. on 03/02/2018 at 18:07 Electronically approved by: Henry Valero M.D. on 03/02/2018 at 18:07 Dictated By: HENRY VALERO MD 06 Transcribed By: HELENA on 03/02/181806 COPY TO: MALIK POSADA MD CHEST 2 VIEWS [place] [address] Patient Name: LAKISHA VELAZQUEZ MR #: [id number] : 1955 Age/Sex: 62/M Req #: [id number] Adm Physician: Ordered by: SIRISHA HA MD Report #: [id number] Location: ER Room/Bed: Procedure: [id number] DX/CHEST 2 VIEWS Exam Date: Exam Time: REPORT STATUS: Signed CHEST 2 VIEWS, Technique: CHEST 2 VIEWS Comparison: None Clinical history: Left upper quadrant abdominal pain DISCUSSION: Normal cardiomediastinal silhouette. Hyperinflation versus large lung volumes. No consolidation or edema. No pleural effusion or pneumothorax. IMPRESSION: No acute abnormality Signed by: Dr Vicky Perales MD on 02/12/2018 12:11 AM Dictated By: VICKY PERALES MD Transcribed By: JUAN on 02/12/1810 COPY TO: SIRISHA HA MD CT ABDOMEN/PELVIS WO [place] [address] Patient Name: LAKISHA VELAZQUEZ MR #: [id number] : 1955 Age/Sex: 62/M Req #: [id number] Adm Physician: Ordered by: SIRISHA HA MD Report #: [id number] Location: ER Room/Bed: Procedure: [id number] CT/CT ABDOMEN/PELVIS WO Exam Date: 02/12/18 Exam Time: 2346 REPORT STATUS: Signed EXAM: CT ABDOMEN/PELVIS WO DATE: 02/11/2018 11:20 PM INDICATION: Abdominal pain left upper quadrant/flank COMPARISON: None TECHNIQUE: The abdomen and pelvis were scanned using a multidetector helical scanner. Coronal and sagittal reformations were obtained. Routine protocol performed. IV Contrast: 0 ml Isovue 300/370 FINDINGS: Lack of IV contrast decreases sensitivity in evaluating abdominal and pelvic organs. LOWER THORAX: Calcified left lung granuloma. Mild mosaic which can made seen with small airways disease. LIVER/BILIARY: Several liver cysts. No biliary ductal dilation GALLBLADDER: Unremarkable SPLEEN: Unremarkable PANCREAS: Unremarkable ADRENALS: No nodules KIDNEYS: No hydronephrosis or stones. Posterior 1.8 cm left renal cystic lesion. GI TRACT: No wall thickening or evidence of obstruction. Appendix is not visualized. VESSELS: Moderate atherosclerotic calcification. PERITONEUM/RETROPERITONEUM: No free air or fluid LYMPH NODES: No lymphadenopathy REPRODUCTIVE ORGANS/BLADDER: Prostate is normal in size. Mild circumferential bladder wall thickening. SOFT TISSUES: Unremarkable BONES: Postsurgical changes status post lumbar decompression, right iliac bone harvest and remaining fractured L2 particular screw. Minimal anterolisthesis of L3 over L4, retrolisthesis of L2 over L3. IMPRESSION: Mild nonspecific branch of bladder wall thickening, which can be seen with cystitis. Otherwise no acute abnormality. No nephroureterolithiasis. Signed by: Dr Vicky Perales MD on 02/12/2018 12:20 AM Dictated By: VICKY PERALES MD Transcribed By: JUAN on 02/12/1819 COPY TO: SIRISHA HA MD
[2018-10-19] MEDS ORDERED: FENTANYL 50 MCG/HR PATCH TOP NR (13:45)
--- NOTE | 2018-10-19 17:49 | Diagnostic Imaging Report ---
TECHNIQUE: Magnetic resonance imaging of the LEFT HIP was performed WITHOUT injected contrast. HISTORY: Pain COMPARISON: Left hip radiographs July 23, 2018. Bone windows CT of the pelvis July 29, 2018. FINDINGS: Bone: No focal or infiltrative bone marrow replacing abnormality. No osteonecrosis or acute fracture. Femoroacetabular Joint: Acetabular labrum: No detached labral tear. Mild attenuation and contour irregularity, most notably of the anterosuperior labrum. Articular Cartilage: Low-grade erosion of the weightbearing cartilage. Muscle and tendons: The visualized tendons appear intact. Soft tissues: Otherwise, unremarkable. IMPRESSION: 1. No acute fracture. 2. Mild degenerative changes of the femoral acetabular joint. 3. Please refer to the separately acquired and interpreted MRI of the lumbar spine from the same date. A preliminary report was provided by Dr. Valero on October 19, 2018. Signed by: Dr. Evan Sharma D.O., M.M.M. on 10/20/2018 1:58 PM
[2018-10-19] MEDS ORDERED: ONDANSETRON HCL INJ 2 MG/ML VIAL IV PRN (19:15)
[2018-10-19] MEDS ORDERED: HYDROMORPHONE 1MG/1ML INJ IV PRN (19:30)
[2018-10-19] MEDS ORDERED: LACTULOSE10 GM/151 PO (20:48)
[2018-10-19] MEDS ORDERED: TIZANIDINE HCL4 MG PO (20:48)
[2018-10-19] MEDS: SODIUM CHLORIDE 0.9% 1000ML 1,000 ML IV SCH (21:45)
[2018-10-19] MEDS: HYDROMORPHONE 2MG/ML 2 MG/ML ML IV PRN (21:45)
--- NOTE | 2018-10-19 21:56 | NUR ---
Received patient from ER, report per Namita pt transported per stretcher accompanied bu nurse and . Patient is alert and oriented, c/o left hip pain. Dilaudid IV given just prior to transfer to floors. IV to the Right AC 20G, NS regulated at 125ml/hr as ordered. Fentanyl patch noted at the right upper arm, scratch noted to the right hand. Call light within easy reach, advised to call for assistance when needed. Patient advised on bedrest with BRP, patient verbalized understanding. Will continue to monitor closely
[2018-10-19 21:57] VITALS: BP 120/79
[2018-10-19 22:00] VITALS: BP 120/79
[2018-10-19] MEDS: LORAZEPAM INJ 2 MG/ML VIAL IV SCH (23:58)
[2018-10-20] VITALS (8 sets, daily range): BP systolic 101–133; BP diastolic 56–76
[2018-10-20] MEDS: HYDROMORPHONE 2MG/ML 2 MG/ML ML IV PRN ×7 (02:15→22:41)
[2018-10-20] MEDS: SODIUM CHLORIDE 0.9% 1000ML 1,000 ML IV SCH ×3 (05:27→19:13)
[2018-10-20] MEDS: LORAZEPAM INJ 2 MG/ML VIAL IV SCH ×4 (05:28→23:50)
[2018-10-20 06:17] LABS: BASOPHILS # (AUTO) 0.1 (0.0-0.1); BASOPHILS % 0.9 % (0.0-1.0); EOSINOPHILS # (AUTO) 0.2 (0.0-0.4); EOSINOPHILS % 2.7 % (0.0-6.0); HEMOGLOBIN 11.5 g/dL (14.0-18.0); LYMPHOCYTES # (AUTO) 2.6 (1.0-3.2); LYMPHOCYTES % 36.8 % (18.0-39.1); MEAN CORPUSCULAR HEMOGLOBIN 32.5 pg (28-32); MEAN CORPUSCULAR HGB CONC 33.8 g/dL (31-35); MONOCYTES # (AUTO) 0.7 (0.2-0.8); MONOCYTES % 9.4 % (4.4-11.3); NEUTROPHILS # (AUTO) 3.5 (2.1-6.9); NEUTROPHILS % 49.8 % (38.7-80.0); PLATELET COUNT 221 x10e3/uL (140-360); RED BLOOD COUNT 3.54 x10e6/uL (4.3-5.7); RED CELL DISTRIBUTION WIDTH 12.5 % (11.7-14.4)
[2018-10-20 06:29] LABS: INR 0.9
[2018-10-20 06:39] LABS: ANION GAP 11.2 mmol/L (8-16); BLOOD UREA NITROGEN 11 mg/dL (7-26); BUN/CREATININE RATIO 15 (6-25); CARBON DIOXIDE 26 mmol/L (22-29); CHLORIDE 102 mmol/L (98-107); CREATININE, SERUM 0.74 mg/dL (0.72-1.25); EST GLOMERULAR FILTRATION RATE > 60 ML/MIN (60-); GLUCOSE 103 mg/dL (74-118); POTASSIUM 4.2 mmol/L (3.5-5.1); SODIUM 135 mmol/L (136-145)
--- NOTE | 2018-10-20 07:06 | NUR ---
left a message for Dr. Rizzo at [phone] , awaiting call back
--- NOTE | 2018-10-20 07:19 | History and Physical ---
Patient is a 63-year-old male with a history of hypertension and low back pain comes in with left hip pain and low back pain. HISTORY OF PRESENT ILLNESS: This is Mr. James Bryant who is being seen by multiple orthopedic surgeons and neurosurgeon. has recently seen him. Did not recommend surgical treatment for his back. Two days prior to admission the patient was on his inversion table and heard a click in his left hip, and the patient ever since has been in pain. Came in the office yesterday with a 10/10 intensity pain. The patient is currently on pain medication and was not helping him. The patient was sent to the emergency room and admitted to the hospital for pain control and possible re-evaluation of his back. PAST MEDICAL HISTORY: History of hypertension, history of low back pain. SURGICAL HISTORY: The patient had a knee replacement on his right knee. The patient had also 7 back surgeries, right hip surgery and appendectomy. FAMILY HISTORY: Consistent with brain tumor. Mother with brain cancer. Family history of myocardial infarction in father. SOCIAL HISTORY: No ETOH. No IV drug abuse. No history of smoking. Lives with his . Good family support. REVIEW OF SYSTEMS: Negative for chest pain. No shortness of breath. Positive for nausea with the pain. No vomiting. No diarrhea. No constipation. No rectal bleeding. No hematochezia. No hematemesis. No red flags for cord compression. PHYSICAL EXAMINATION VITAL SIGNS: 96.6, pulse of 76, blood pressure is 106/59, pulse oximetry 96% on room air. HEENT: Normocephalic and atraumatic. The patient is grimacing in pain. CV: S1 and S2 normal. Regular rate and rhythm. ABDOMEN: Nontender and nondistended. EXTREMITIES: No clubbing. No cyanosis. No edema. Straight leg raise positive on the left side. Hip abduction with acute amount of pain. IMAGING STUDIES: Done yesterday with a hip MRI showed no acute displaced fracture or dislocation. No significant inflammatory changes in the hip joint. LABORATORY VALUES: White count was 7.1, hemoglobin 11.5, hematocrit is 34. Coags were normal. ASSESSMENT: Low back pain. Will go ahead and get an MRI of the lumbar spine and hip has been done. Consult Dr. Rizzo for continuous low back pain. Further recommendations per clinical course. Will continue with pain management and continue with his home medications. Further recommendations per clinical course. Will continue monitoring the patient in the hospital. Possible discharge in 1-2 days depending on neurosurgical evaluation and consultation. Job#: [id number] JANET
[2018-10-20] MEDS: LISINOPRIL 2.5 MG TAB PO SCH ×2 (09:00→16:11)
[2018-10-20] MEDS: TIZANIDINE HCL 4 MG TAB PO SCH ×3 (09:15→21:10)
--- NOTE | 2018-10-20 10:39 | NUR ---
CM SPOKE TO PATIENT AT BEDSIDE REGARDING CAMPA LETTER. CAMPA LETTER GIVEN WITH EXPLANATION. ORIGINAL SIGNED AND PLACED IN CHART; COPY OF ORIGINAL DOCUMENT GIVEN TO PATIENT AT BEDSIDE AND PLACED IN CARE TRANSITION FOLDER. CM CONTACT INFORMATION GIVEN TO PATIENT FOR ANY NEEDS OR CONCERNS. PATIENT WITH NO FURTHER QUESTIONS.
--- NOTE | 2018-10-20 10:45 | NUR ---
CASE MANAGEMENT INITIAL ASSESSMENT Priest to bedside to discuss plan of care with patient/family. CM/SW role and care transitions discussed. Anticipated discharge plan discussed along with duration of care. CM discussed patients right to make decisions in care. CM/SW work hours given. Patient lives: PATIENT LIVES IN 1 STORY HOME WITH TIFFANIE VELAZQUEZ Admit/Transfer: ED POA/Emergency contact: TIFFANIE VELAZQUEZ- [phone] Current/Previous Home Health: NONE PCP/Follow-up Care: DR. MALIK POSADA Current/Previous DME: NONE Other Services: NONE Employment Status: UNEMPLOYED; RECEIVES DISABILITY BENEFITS Areas of Concerns: NONE AT THIS TIME Referral Needs: NONE AT THIS TIME Education Needs: PAIN MANAGEMENT IMM/CAMPA given and signed (if applicable): CAMPA; PATIENT IN EXTREME PAIN AND REQUESTS SIGN DOCUMENT. Goal for discharge: DISCHARGE HOME INDEPENDENT WITH NO NEEDS CM left business card at the bedside with contact information. Name and number was also written on the patients whiteboard. Patient verbalized understanding of discussion. CM will follow-up with ongoing discharge and transition of care needs.
--- NOTE | 2018-10-20 11:40 | NUR ---
PT OFF UNIT FOR MRI OF LUMBAR VIA WHEEL CHAIR AT THIS TIME
--- NOTE | 2018-10-20 12:50 | NUR ---
pt back to floor from mri at this time
--- NOTE | 2018-10-20 13:30 | Diagnostic Imaging Report ---
Exam: Lumbar spine right without IV contrast History: Left hip and lower back pain, left L1-L2 radiculopathy Comparison studies: Lumbar spine CT 07/19/2018. Technique: Sagittal and axial T2 , sagittal T1 and IR, axial spin density oblique. Intravenous contrast: None Findings: Several pulse sequences are limited artifacts related to patient motion. Number of lumbar vertebral bodies: 5. Alignment: Lumbar curvature convex to the right centered at L2, mild right lateral translation of L2 on L3, Grade 1 Anterolisthesis of L3 on L4 and Grade 1 retrolisthesis of L2 on L3 are unchanged. Soft tissues: Postsurgical changes in the dorsal paraspinal soft tissues from L1-L2 to L5-S1 with severe atrophic changes in the paraspinal musculature from L4 into the sacrum. Small fluid collection/seroma in the epidural space along the laminectomy bed from L2-L3 to L4-L5 measures up to 6 mm AP x 19 mm TV. Lower thoracic cord: Normal in signal and morphology. The tip of the conus is at L1 Cauda equina: No gross masses or arachnoiditis. Evaluation is limited due to motion artifacts. Post surgical changes: Decompressive laminectomies from L2-L3 through L4-L5. Solid posterolateral fusion from L4 to S1. Retained left L2 transpedicular screw. Right L2 and bilateral L3 and L4 transpedicular screw tracts related to prior instrumented fusion are better visualized on on the prior CT. Vertebrae: No compression fracture, infection or neoplasm. Unchanged chronic bilateral pars defects at L2 and L3. Moderate edema along the L2 and L3 endplates which emanate into the vertebral bodies which are likely degenerative/reactive secondary to stress response. Degenerative changes: L1-L2: Mildly degenerated disc. Disc bulge with asymmetric left disc osteophyte complex, thickened ligamentum flavum and facet arthrosis with moderate canal stenosis and moderate bilateral foraminal stenosis, unchanged. L2-L3: Disc degeneration, worse/severe on the left along the concavity lumbar curvature. Minimal retrolisthesis of L2 on L3 with associated uncovered disc/disc osteophyte complex and hypertrophic changes at the facets with moderate bilateral foraminal stenosis. No significant canal stenosis. L3-L4: Mildly degenerated disc. Grade 1 anterolisthesis of L3 on L4 with associated uncovered disc/disc bulge with moderate left foraminal stenosis. Patent canal and right foramen. L4-5: Moderately degenerated disc. Disc osteophyte complex and hypertrophic changes at the facets without significant canal or foraminal stenosis. L5-S1: Moderately degenerated disc. Patent canal and foramina. Additional findings: Small T2 hyperintense lesions in both kidneys may be cysts. IMPRESSION: No significant changes from the lumbar spine CT of 07/19/2018. 1. Severe disc degeneration at L2-L3 on the left along the concavity of lumbar curvature with associated reactive L2 and L3 vertebral body edema. 2. Moderate degenerative canal stenosis at L1-L2. 3. Moderate degenerative foraminal stenosis bilaterally at L1-L2 and at L2-L3 and on the left at L3-L4. 4. Postsurgical changes with decompressive laminectomies from L2 to L5 and solid posterolateral fusion from L4 to S1. Retained, fractured left L2 transpedicular screw related to prior instrumented fusion. 5. Chronic bilateral L2 and L3 pars defects. Signed by: Dr. Scar Jose M.D. on 10/20/2018 1:27 PM
--- NOTE | 2018-10-20 15:59 | NUR ---
HEALTH AND PHYSICAL EDUCATION PROFESSOR REPAGED MD GRAVES AT THIS TIME REGARDING CONSULT.
[2018-10-20] MEDS ORDERED: NICOTINE 14 MG/EA PATCH TOP ONE (18:00)
[2018-10-21] VITALS: BP 155/82
[2018-10-21] MEDS: HYDROMORPHONE 2MG/ML 2 MG/ML ML IV PRN ×5 (01:49→11:02)
[2018-10-21] MEDS: SODIUM CHLORIDE 0.9% 1000ML 1,000 ML IV SCH ×2 (03:34→11:13)
[2018-10-21 04:00] VITALS: BP 133/71
[2018-10-21] MEDS: LORAZEPAM INJ 2 MG/ML VIAL IV SCH (06:08)
--- NOTE | 2018-10-21 06:30 | NUR ---
DR PEREZ ANSWERING SERVICE CALLED AT THIS TIME REGARDING CONSULT,PROMPTED TO LEAVE MESSAGE,MESSAGE LEFT WITH CALL BACK NUMBER.
--- NOTE | 2018-10-21 06:52 | NUR ---
REPORT GIVEN TO ONCOMING NURSE,PT RESTING IN BED WITH NO S/S OF DISTRESS.
--- NOTE | 2018-10-21 06:58 | NUR ---
DR PEREZ CALLED BACK,NOTIFIED ABOUT THE CONSULT.STATED THAT HE WILL SEE THE PATIENT TODAY.
--- NOTE | 2018-10-21 07:10 | NUR ---
SPOKE WITH MD POSADA WHEN ROUNDING ORDERS TWO DOSAGES OF SOLUMEDROL IV AT THIS TIME. AWAITING FOR MADELEINE TO ROUND ON PT FOR FURTHER ORDERS (PLAN OF CARE)
[2018-10-21] MEDS ORDERED: METHYLPREDNISOLONE SOD SUCC 125 MG/2ML VIAL IV ONE ×2 (07:15→14:00)
[2018-10-21 08:00] VITALS: BP 115/70
--- NOTE | 2018-10-21 08:16 | Progress Note ---
DATE: SUBJECTIVE: Patient is here with left hip pain and also back pain. Patient has a history of multiple back surgeries, laminectomies, decompression surgeries, and fusion. Currently, continues to be in 10/10 pain, cannot get out of bed without considerable amount of pain. PHYSICAL EXAMINATION: VITAL SIGNS: Today, temperature is 97, respiration of 20, blood pressure is 133/71, pulse oximetry of 97%. HEENT: Normocephalic, atraumatic. Pupils are reactive to light and accommodation. CVS: S1, S2 normal. Regular rate and rhythm. ABDOMEN: Nontender, nondistended. EXTREMITIES: No clubbing, no cyanosis, no edema. Tenderness in the lumbar spine. Straight leg raise not possible, limited by pain. Patient's MRI from yesterday shows postsurgical changes, severe disk degeneration of L2-L3 along the cavity of the lumbar curvature, moderate degenerative canal stenosis at L1-L2, moderate degenerative foraminal stenosis between L1-L2 and L2-L3 and left L3 and L4, and postsurgical changes also noted. ASSESSMENT: 1. Lumbar radiculopathy, probably L2, L3, and L4 in nature. Will have neurosurgeon look into his magnetic resonance imaging and possible intervention or discharge depending on Dr. Rizzo's advice. Further recommendations per clinical course. In the interim, will give him Solu-Medrol 60 mg to decrease the swelling in the vertebral body. 2. Hypertension. Continue with all his antihypertensives. Will resume his medications. Job#: [id number]
[2018-10-21 08:34] VITALS: BP 115/70
[2018-10-21] MEDS: TIZANIDINE HCL 4 MG TAB PO SCH (08:34)
[2018-10-21] MEDS: LISINOPRIL 2.5 MG TAB PO SCH (08:51)
[2018-10-21] MEDS ORDERED: NICOTINE 14 MG/EA PATCH TOP SCH (09:00)
[2018-10-21 11:40] VITALS: BP 113/63
--- NOTE | 2018-10-21 12:08 | Consultation ---
DATE OF CONSULTATION: October 21, 2018 REASON FOR CONSULTATION: Low back and left hip pain. HISTORY OF PRESENT ILLNESS: Patient is a 63-year-old man who has had 7 previous operations in the lumbar spine in the past, culminating in a multilevel laminectomy and fusion from L2 to S1. His most recent operation was several years ago where his broken pedicle screw hardware was removed except for 1 pedicle screw that was left at L2 on the left side. He has had chronic low back pain and has been under the care of a pain specialist in the past, Dr. Dong. His most recent injection was about 2 months ago. He has had pain radiating to the left hip and groin for the past several months. The pain became more severe recently and he was admitted for pain management. An MRI was performed and I was consulted. PHYSICAL EXAMINATION GENERAL: On examination, the patient is awake and alert. He is lying on his hospital bed. He is able to move around and stand. NEUROLOGIC: Motor strength is full and symmetric in the legs. Sensory testing reveals no numbness in the upper lumbar distribution. Deep and reflexes are absent in the patellar and Achilles tendons. Plantar responses are flexor. Straight leg raising provoked low back pain and left hip pain at 30 degrees. MRI of the lumbar spine was reviewed. There is multilevel laminectomy and fusion from L2 to S1. There is mild to moderate spinal stenosis at L1 to about the level of the previous fusion due to facet arthropathy and minimal disk bulge. There is no significant compression of the nerve roots. In addition, he has evidence of arachnoiditis with clumping of the cauda equina in the region of the previous laminectomy and a very small extradural CSF collection that suggests a dural laceration in the distant past. He does not require further surgical treatment. 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 I recommend that he returns to his pain specialist for further treatment. Job#: [id number] MARISELA
[2018-10-21] MEDS ORDERED: LORAZEPAM INJ 2 MG/ML VIAL IV PRN (12:15)
--- NOTE | 2018-10-21 12:19 | NUR ---
SPOKE WITH MD POSADA REGARDING NEURO STOPPING BY AND NOT SCHEDULING AND INTERVENTIONS IN TERMS OF SX. STATES PT CAN GO HOME AFTER 2ND DOSE OF STEROID AND TO MAKE PT AWARE THAT HE WILL CALL PRESCRIPTIONS FOR ATIVAN AND STEROIDS TO HIS PHARMACY
--- NOTE | 2018-10-21 14:23 | NUR ---
discharge instructions given pt verbalized understanding. iv dc pressure dressing applied and taped. instructed pt to wait 15-30 prior to leaving due to dilaudid . pt verbalizes understanding.
--- NOTE | 2018-10-21 14:46 | NUR ---
pt off unit via wheel chair to home
== END 2018-10-21 14:40 | disposition home or self-care (01) ==
LOC: ER 13:21 → ERHOLD 20:48 → MED/SURG 22:02
PROVIDERS: ADMIT Family Medicine; ATTEND Family Medicine
DX: M54.16 Radiculopathy, lumbar region (principal); I11.0 Hypertensive heart disease with heart failure; I50.9 Heart failure, unspecified; I25.10 Atherosclerotic heart disease of native coronary artery without angina pectoris; M48.061 Spinal stenosis, lumbar region without neurogenic claudication; G03.1 Chronic meningitis
CPT/HCPCS: 36415; 72148; 73721; 80048; 85025; 85610; 85730; 99284; G0378 ×3; J1170 ×3; J2060 ×3; J2405; J2930; J7030 ×3

== ENCOUNTER 2018-11-15 20:02 | Observation (INO) | payer MEDICARE ==
[~2018-11-15] VITALS: Ht 195.6 cm; Wt 93.9 kg
[~2018-11-15 20:02] MED LIST changes: -FENTANYL1 EAC1; +FENTANYL1 EAC1 TOP; +LACTULOSE10 GM/151 PO; +TIZANIDINE HCL4 MG PO
[2018-11-15] MEDS ORDERED: ASPIRIN 81 MG CHEW TAB PO ONE (20:45)
[2018-11-15 20:48] LABS: BASOPHILS # (AUTO) 0.1 (0.0-0.1); BASOPHILS % 0.6 % (0.0-1.0); EOSINOPHILS # (AUTO) 0.3 (0.0-0.4); HEMATOCRIT 39.4 % (38.2-49.6); HEMOGLOBIN 13.7 g/dL (14.0-18.0); LYMPHOCYTES # (AUTO) 2.9 (1.0-3.2); LYMPHOCYTES % 28.3 % (18.0-39.1); MEAN CORPUSCULAR HEMOGLOBIN 32.5 pg (28-32); MEAN CORPUSCULAR HGB CONC 34.8 g/dL (31-35); MEAN CORPUSCULAR VOLUME 93.4 fL (81-99); MONOCYTES # (AUTO) 0.7 (0.2-0.8); MONOCYTES % 6.7 % (4.4-11.3); NEUTROPHILS # (AUTO) 6.1 (2.1-6.9); NEUTROPHILS % 60.9 % (38.7-80.0); PLATELET COUNT 287 x10e3/uL (140-360); RED BLOOD COUNT 4.22 x10e6/uL (4.3-5.7); RED CELL DISTRIBUTION WIDTH 12.6 % (11.7-14.4)
[2018-11-15 20:56] LABS: INR 0.86; PROTHROMBIN TIME 12.5 seconds (11.9-14.5)
[2018-11-15 20:57] LABS: PARTIAL THROMBOPLASTIN TIME 33.7 seconds (23.8-35.5)
[2018-11-15 21:07] LABS: ALANINE AMINOTRANSFERASE 17 IU/L (0-55); ALBUMIN 4.1 g/dL (3.5-5.0); ALBUMIN/GLOBULIN RATIO 1.2 (0.8-2.0); ALKALINE PHOSPHATASE 64 IU/L (40-150); AMYLASE 36 U/L (25-125); ANION GAP 16.9 mmol/L (8-16); BLOOD UREA NITROGEN 5 mg/dL (7-26); BUN/CREATININE RATIO 6 (6-25); CALCIUM 9.4 mg/dL (8.4-10.2); CARBON DIOXIDE 22 mmol/L (22-29); CHLORIDE 97 mmol/L (98-107); CREATINE KINASE 75 IU/L (30-200); EST GLOMERULAR FILTRATION RATE > 60 ML/MIN (60-); GLUCOSE 109 mg/dL (74-118); LIPASE 17 U/L (8-78); MAGNESIUM 1.8 MG/DL (1.3-2.1); POTASSIUM 3.9 mmol/L (3.5-5.1); SODIUM 132 mmol/L (136-145)
--- NOTE | 2018-11-15 21:23 | Diagnostic Imaging Report ---
EXAMINATION: CHEST SINGLE (PORTABLE) INDICATION: Chest pain COMPARISON: Chest x-ray 02/11/2018 FINDINGS: AP view TUBES and LINES: None. LUNGS: Lungs are well inflated. Lungs are clear. There is no evidence of pneumonia or pulmonary edema. PLEURA: No pleural effusion or pneumothorax. HEART AND MEDIASTINUM: The cardiomediastinal silhouette is unremarkable. BONES AND SOFT TISSUES: No acute osseous lesion. Soft tissues are unremarkable. UPPER ABDOMEN: No free air under the diaphragm. IMPRESSION: No acute thoracic abnormality. Signed by: DR. Christ Benoit MD on 11/15/2018 9:20 PM
[2018-11-15] MEDS ORDERED: ONDANSETRON HCL INJ 2MG/ML 2ML 2 MG/ML VIAL IV PRN (22:45)
[2018-11-15] MEDS ORDERED: MORPHINE SULFATE 2 MG/ML SYR 1ML IV PRN (22:45)
[2018-11-15] MEDS ORDERED: SODIUM CHLORIDE FLUSH 10 ML SYR INJ PRN (22:45)
[2018-11-15] MEDS ORDERED: FAMOTIDINE 20 MG/2 ML VIAL IV SCH (22:45)
[2018-11-16] VITALS (8 sets, daily range): BP systolic 103–122; BP diastolic 58–62
--- NOTE | 2018-11-16 02:10 | NUR ---
pt received from er via stretcher. no ss of distress noted upon admission. pt made comfortable and oriented to rm. assisted pt to bathroom and back to bed. tele in place. hx obtained. will cont to follow poc. call paulson within reach.
--- NOTE | 2018-11-16 04:25 | NUR ---
pt resting. no ss of distress noted. call paulson within reach.
--- NOTE | 2018-11-16 06:04 | NUR ---
spoke to dr bates regarding new consult. no new orders at time. will notify oncoming nurse.
[2018-11-16] MEDS ORDERED: NON-FORMULARY MEDICATION (Oxycodone Hcl/Acetaminophen (Percocet 10-325 Mg Tablet) 1 TAB) PO PRN (07:00)
[2018-11-16] MEDS ORDERED: LACTULOSE SYRUP 20 GM/30 ML UDC PO PRN (07:00)
[2018-11-16] MEDS ORDERED: TIZANIDINE HCL 4 MG TAB PO PRN (07:00)
[2018-11-16] MEDS ORDERED: FENTANYL 50 MCG/HR PATCH TOP PRN (07:15)
--- NOTE | 2018-11-16 07:25 | NUR ---
PATIENT SITTING AT BED SIDE TALKING TO FAMILY MEMBER, NO RESPIRATORY DISTRESS OBSERVED. DENIED PAIN AT THIS TIME. BED IN LOWER POSITION, CALL LIGHT AT REACH.
--- NOTE | 2018-11-16 07:29 | History and Physical ---
Patient is in [facility] 181. CHIEF COMPLAINT: Patient came in yesterday in the ER for chest pain. HISTORY OF PRESENTING ILLNESS: This is Mr. James Bryant with a history of MA, history of hypertension, history of hyperlipidemia, and history of smoking, was in usual state of health until the patient had lunch at about 12 o'clock, and at about 3 o'clock the patient started with chest pain, noticed as to be retrosternal, radiating to the neck and also to the left upper extremity on the posterior side. Patient describes the pain as 6/10 to 8/10 in intensity and burning in nature and also aching in nature. Patient did not have any nausea, vomiting, diaphoresis, and/or difficulty breathing at that time. Patient has had an MA in the past. PAST MEDICAL HISTORY: History of coronary artery disease, history of myocardial infarction in the past, history of hypertension, history of chronic low back pain, history of smoking, history of intervertebral disk disorders in the cervical and lumbar spine, and history of chronic pain medication intake for pain management. MEDICINES: He takes at home are aspirin 81 mg, fentanyl 72 mcg patch q.3. a day, lactulose 10 g as needed, lisinopril 5 mg twice a day, oxycodone 10 per 325, tizanidine 4 mg, and vitamin B complex 1 tablet daily. ALLERGIES: NO DRUG ALLERGIES NOTED. SOCIAL HISTORY: History of smoking, history of alcohol socially. No IV drug abuse. FAMILY HISTORY: Positive for heart disease in the family. REVIEW OF SYSTEMS: Positive for chest pain. No shortness of breath. No nausea, vomiting, diarrhea. Positive for constipation. No rectal bleeding. No hematochezia, no hematemesis. No blurry vision. No diplopia. No headaches. PHYSICAL EXAMINATION: GENERAL: Patient is alert and oriented x3, very comfortable at this time. VITAL SIGNS: Temperature was 95.5, pulse of 65, respiration of 20, blood pressure is 112/59, pulse oximetry of 94% on room air. HEENT: Normocephalic, atraumatic. Pupils are reactive to light and accommodation. CVS: S1 and S2 normal. ABDOMEN: Nontender, nondistended. EXTREMITIES: No clubbing, no cyanosis, no edema. LABORATORY VALUES: Patient's sodium initially was 132. Anion gap was 16.9. BUN of 5, creatinine of 0.80. AST, ALT were normal. Troponin was 0.05, second set has been drawn. BNP was less than 10. Coags were, PT 12.5, INR 0.86. Chest x-ray shows no cardiopulmonary disorders, no acute thoracic abnormalities. ASSESSMENT: 1. Chest pain with a known history of myocardial infarction. Patient recently had cardiac workup [address] Garrido. Stress test was negative. 2. History of smoking and history of hyperlipidemia. Check lipid levels. Also probably start the patient on statin knowing the fact that he has heart disease. 3. Low back pain. Will continue his home medication. Will also do a computerized tomography of the lungs in lieu of his smoking history. Further recommendations per clinical course. Patient can be kept in observation. Troponins will be trended and Dr. Garrido is on consult. Job#: [id number]
[2018-11-16 07:57] LABS: CHOL/HDL RATIO 5.9 (3.9-4.7); CREATINE KINASE 58 IU/L (30-200)
--- NOTE | 2018-11-16 08:20 | NUR ---
PATIENT OFF UNIT TO RADIOLOGY.
--- NOTE | 2018-11-16 08:39 | NUR ---
PATIENT BACK TO UNIT FROM RADIOLOGY. HAD A CT OF CHEST. IN BED WITH CALL LIGHT AT REACH.
[2018-11-16] MEDS ORDERED: IOPAMIDOL 370 MG/ML 200 ML INFUS..BTL INJ ONE (08:48)
[2018-11-16] MEDS ORDERED: SODIUM CHLORIDE 0.9% 50ML 50 ML ONE (08:48)
[2018-11-16] MEDS ORDERED: ASPIRIN 81 MG ENTERIC COATED PO SCH (09:00)
[2018-11-16] MEDS ORDERED: ASPIRIN 81 MG CHEW TAB PO SCH (09:00)
[2018-11-16] MEDS ORDERED: FAMOTIDINE 20 MG/2 ML VIAL IV SCH (09:00)
[2018-11-16] MEDS: MORPHINE SULFATE INJ 4 MG/ML INJ 1ML IV PRN ×2 (09:10→15:20)
--- NOTE | 2018-11-16 09:15 | Diagnostic Imaging Report ---
EXAMINATION: CT scan of the chest with contrast. TECHNIQUE: Spiral CT images of the chest were performed from the lung apices to the level of the adrenal glands after the intravenous administration of 100 cc Isovue-370. Coronal and sagittal reformatted images were obtained. COMPARISON: Chest radiograph 11/15/2018 CLINICAL HISTORY:Chest pain DISCUSSION: LINES/TUBES: None. LUNGS AND AIRWAYS: Biapical pleural-parenchymal scar with a 3 mm left apical nodule seen on series 3 image 15. Mild upper lobe predominant paraseptal emphysematous changes. 2 mm juxtapleural right upper lobe nodule series 3 image 42. 2 mm juxtapleural right upper lobe nodule series 3 image 52. 2 mm juxtapleural right middle lobe nodule series 3 image 70. Calcified right middle lobe granuloma series 3 image 74. Multiple additional smaller calcified right middle lobe granuloma. Calcified lingular granuloma series 3 image 81. 2 mm calcified juxtapleural left lower lobe nodule seen on series 3 image 95. No airspace consolidation, gross fibrotic change, or bronchiectasis. Trachea, mainstem bronchi, and central lobar and segmental bronchi are patent. PLEURA: No pneumothorax or pleural effusions. HEART AND MEDIASTINUM: Visualized portions of the thyroid gland are normal. Great vessel origins are normal in caliber and configuration. No ectasia or aneurysmal dilatation of the thoracic aorta. Main pulmonary artery, right and left pulmonary arteries, and lobar branches are patent without filling defect. Pulmonary outflow tract is of normal caliber. Atherosclerotic calcification of the great vessel origins and mentasta coronary arteries. LYMPH NODES: No axillary, hilar, or mediastinal lymphadenopathy. No pericardial effusion. ABDOMEN: Visualized portions of the liver, spleen, pancreas, adrenals, and kidneys are notable for simple cysts in hepatic segments 1 and 5 with subcentimeter hypoattenuating lesions too small to further characterize within both kidneys. BONES AND SOFT TISSUES: No osseous destructive lesions. Degenerative disc changes of the cervical and thoracic spine. No focal soft tissue abnormalities. IMPRESSION: No acute thoracic CT abnormalities. Mild upper lobe predominant emphysematous changes. Scattered calcified granulomata with multiple additional subcentimeter noncalcified nodules, likely granulomata. A follow-up CT scan of the chest without contrast in one year is suggested to assess for stability if the patient has a history of tobacco use or is at high risk of malignancy per Fleischner Society 2017 guidelines. Atherosclerotic vascular disease. Signed by: Dr. Scar Mccabe M.D. on 11/16/2018 9:00 AM
[2018-11-16] MEDS: LISINOPRIL 2.5 MG TAB PO SCH ×2 (09:21→17:00)
[2018-11-16] MEDS ORDERED: HYDROCODONE/APAP 10MG-325MG TAB PO PRN (10:45)
--- NOTE | 2018-11-16 11:25 | NUR ---
PATIENT SITTING AT BED SIDE TALKING TO FAMILY MEMBER VISITING. BED IN LOWER POSITION, CALL LIGHT AT REACH.
--- NOTE | 2018-11-16 12:34 | NUR ---
SOCIAL WORK INITIAL ASSESSMENT Linen Manager to bedside to discuss plan of care with patient/family. CM/SW role and care transitions discussed. Anticipated discharge plan discussed along with duration of care. CM/SW discussed patients right to make decisions in care. CM/SW work hours given. Patient lives: IN HOUSE WITH FAMILY Admit/Transfer: VIA ED POA/Emergency contact: TIFFANIE [phone] Current/Previous Home Health: NONE PCP/Follow-up Care: SWETHA Current/Previous DME: NONE Other Services: NONE Employment Status: RETIRED Areas of Concerns: IN HOSPITAL APPROX 1 MONTH AGO, WAS ABLE TO FOLLOW UP WITH PCP NO MAJOR MEDICATION CHANGES Referral Needs: NONE Education Needs: NONE IMM/CAMPA given and signed (if applicable): UPON ADMISSION Goal for discharge: RETURN HOME CM/SW left business card at the bedside with contact information. Name and number was also written on the patients whiteboard. Patient verbalized understanding of discussion. CM will follow-up with ongoing discharge and transition of care needs.
--- NOTE | 2018-11-16 13:55 | NUR ---
Visit made by the Spiritual Care Department Pastoral Visitor, Emily Chapa. PV provided pastoral presence, prayer, hospitality, and supportive listening. Pastoral Visitor informed pt/family of the scope of Rug Frame Mounter Services and availability. SYED HOSKINS Offal Worker Spiritual Care Department O: [phone] Pager: [phone] ([phone] number calling from)
--- NOTE | 2018-11-16 14:17 | NUR ---
Nutrition Screen Note RD Recommendation for Physician: -Continue cardiac diet as ordered Plan of Care: RD following, monitoring for tolerance and adequacy Nutrition reason for involvement: Nutrition Risk Trigger MST Primary Diagnose(s): chest pain PMH: HTN, HLD, RI, CAD Ht: 77in Wt: 207.06lb BMI: 24.6kg/m2 IBW: 208lb RD Assessment: (11/16) Chart reviewed. Labs and meds reviewed. 63yo M, who is admitted for chest pain. 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 Pt denied chewing/swallowing problems and nausea/vomiting. LBM 11/15. Will cont to monitor. Please consult as needed. Current Diet: cardiac diet Malnutrition Evaluation (11/16/18) The patient does not meet criteria for a specified degree of malnutrition at this time. Will re-evaluate at follow-up as appropriate. Diet Education Needs Assessment: Diet education not indicated. Nutrition Care Level: low Signed: Savana Neumann, MS, RD, LD
[2018-11-16 15:54] LABS: CREATINE KINASE 56 IU/L (30-200)
--- NOTE | 2018-11-16 15:55 | NUR ---
CALL RECEIVED FROM Tarik SAUNDERS STATING THAT THE PATIENT WILL HAVE A STRESS TEST DONE IN AM, SHOULD BE NPO AFTER MIDNIGHT. PATIENT NOTIFIED OF PLAN OF CARE.
--- NOTE | 2018-11-16 16:09 | Consultation ---
DATE OF CONSULTATION: November 16, 2018 CARDIOLOGY CONSULTATION REASON FOR CONSULTATION: Chest pain. CHIEF COMPLAINT: Chest pain. HISTORY OF PRESENT ILLNESS: The patient is a 63-year-old man with history of known coronary artery disease by coronary angiogram performed in 2016, who presents with several hours of left-sided chest pain yesterday evening. The chest pain has since resolved overnight. Patient has been ruled out for acute CO. 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 REVIEW OF SYSTEMS: As above, otherwise negative. PAST MEDICAL HISTORY 1. Hypertension. 2. Hyperlipidemia. 3. Coronary artery disease. SOCIAL HISTORY: The patient does not smoke, drink or abuse drugs. FAMILY HISTORY: No family history of early CAD or sudden cardiac . OUTPATIENT MEDICATIONS: Reviewed. PHYSICAL EXAMINATION VITALS: Temperature 96.6, pulse 79, respiratory rate 17, blood pressure 115/60, satting 96% on room air. GENERAL: Middle-aged white man in no acute distress. CARDIOVASCULAR: Regular rate and rhythm. No murmurs, rubs, or gallops. Palpable carotid pulses. Palpable radial pulses. LUNGS: Clear to auscultation bilaterally. ABDOMEN: Soft, nontender, nondistended. NEURO AND PSYCH: Alert and oriented to person, place, and time. Normal affect. LABORATORY DATA: Reviewed. Cardiac enzymes negative x3. INPATIENT MEDICATIONS: Reviewed. IMAGING DATA: Reviewed. Chest CT with no acute abnormalities. ECG with normal sinus rhythm. Echocardiogram is pending. ASSESSMENT AND PLAN 1. Chest pain. 2. Known coronary artery disease with chronic total occlusion of the left anterior descending. 3. Hypertension. 4. Hyperlipidemia. PLAN: Will get a viability study for his TOP INSTALLER of the LAD to evaluate if the apex is viable. Also will evaluate wall function with an echo. If apex is viable, will refer him to 1-vessel bypass surgery given recurrent chest pain and known TOP INSTALLER of the LAD. Thank you for this consult. Will continue to follow. Job#: [id number]
--- NOTE | 2018-11-16 20:38 | NUR ---
PATIENT LEAVE FROM UNIT WITH AMA AT 2025 WITH HIS . NOTIFIED TO ABOUT PATIENT LEAVE WITH AMA AND PAGED DR. GIBSON TO NOTIFIED TWICE BUT DID NOT GET CALL BACK. PATIENT STATED THAT " ORDERED STRESS TEST TOMORROW BUT I DO NOT WANT TO DO THIS TEST BECAUSE MY COMPUTER AIDED DESIGN DRAFTER DID ALL THIS TEST ON AND I KNOW I HAVE 100% BLOCKAGE ON MY LEFT HEART SO I DO NOT NEED THIS TEST AGAIN. I JUST WANT TO GO HOME RIGHT NOW". PATIENT AND EXPLAINED ABOUT AMA CONDITION, ACKNOWLEDGED AND SINGED PAPER. RN YESSY WITNESS WITH ME AT THIS TIME.
== END 2018-11-16 20:30 | disposition left against medical advice (07) ==
LOC: ER 20:02 → ERHOLD 23:52 → IMCU 11-16 02:07
PROVIDERS: ADMIT Family Medicine; ATTEND Family Medicine
DX: R07.9 Chest pain, unspecified (principal); I25.10 Atherosclerotic heart disease of native coronary artery without angina pectoris; Z87.891 Personal history of nicotine dependence; M54.5 Low back pain; E78.5 Hyperlipidemia, unspecified; I25.2 Old myocardial infarction; I10 Essential (primary) hypertension; I25.82 Chronic total occlusion of coronary artery
CPT/HCPCS: 36415 ×2; 71045; 71260; 80053; 80061; 82150; 82550 ×2; 82553 ×2; 83690; 83735; 83880; 84484 ×2; 85025; 85610; 85730; 93005; 93306; 99284; G0378 ×2; J2270; Q9967

== ENCOUNTER → 2019-05-20 | Outpatient (CLI) | payer MEDICARE ==
[~2019-05-20] MED LIST changes: +IOPAMIDOL 370 MG/ML 200 ML INFUS..BTL INJ ONE; +SODIUM CHLORIDE 0.9% 50ML 50 ML ONE
[2019-05-20 17:00] LABS: BLOOD UREA NITROGEN 5 mg/dL (7-26); BUN/CREATININE RATIO 5 (6-25); CREATININE, SERUM 0.93 mg/dL (0.72-1.25); EST GLOMERULAR FILTRATION RATE > 60 ML/MIN (60-)
--- NOTE | 2019-05-20 17:49 | Diagnostic Imaging Report ---
EXAM: CT Abdomen and Pelvis WITH contrast INDICATION: Acute abdominal pain. COMPARISON: 07/29/2018 TECHNIQUE: Abdomen and pelvis were scanned utilizing a multidetector helical scanner from the lung base to the pubic symphysis after administration of IV contrast. Coronal and sagittal reformations were obtained. Routine protocol was performed. Scan was performed when during portal venous phase. IV CONTRAST: 100 cc [id number] ORAL CONTRAST: Water RADIATION DOSE: Total DLP: 718.25 mGy*cm Estimated effective dose: (DLP x 0.015 x size factor) mSv COMPLICATIONS: None FINDINGS: LINES and TUBES: None. LOWER THORAX: Unremarkable HEPATOBILIARY: Interval change in small low-attenuation lesions scattered throughout the hepatic parenchyma, the largest in segment 5 measuring 1.2 cm on image 22 series 2. No enhancing lesions. No biliary ductal dilation. GALLBLADDER: No radio-opaque stones or sludge. No wall thickening. SPLEEN: No splenomegaly. PANCREAS: No focal masses or ductal dilatation. ADRENALS: No adrenal nodules KIDNEYS/URETERS: Kidneys enhance symmetrically. No hydronephrosis. 2.7 cm mildly complex (density of approximately 20 Hounsfield units) cyst exophytic of the posterior lower pole of the left kidney, unchanged. Additional low-attenuation lesions scattered throughout the renal cortex bilaterally are too small to be characterized, however, appears stable and statistically most likely to represent cysts. No stones. GI TRACT: No abnormal distention, wall thickening, or evidence of bowel obstruction. Appendix is not visualized consistent with a status post appendectomy PELVIC ORGANS/BLADDER: Unremarkable. LYMPH NODES: No lymphadenopathy. VESSELS: There is moderate atherosclerotic disease in the aorta and major arterial branches. PERITONEUM / RETROPERITONEUM: No free air or fluid. BONES: No interval change in postoperative changes of the lower lumbar spine and right iliac bone donor site. Remaining screw in the L2 pedicle again observed. Degenerative disc disease and spondylosis most severely affecting L2-L3 with neuroforaminal narrowing. SOFT TISSUES: Small fat-containing umbilical hernia. IMPRESSION: 1. No acute abdominopelvic abnormality. Signed by: Dr. Yael Lopez M.D. on 05/20/2019 5:46 PM
== END ==
LOC: CT 16:14
PROVIDERS: ATTEND Family Medicine
DX: R10.9 Unspecified abdominal pain (principal)
CPT/HCPCS: 36415; 74177; 82565; 84520; Q9967

== ENCOUNTER → 2020-02-22 | Outpatient (CLI) | payer MEDICARE ==
[2020-02-22 12:13] LABS: BLOOD UREA NITROGEN 7 mg/dL (7-26); BUN/CREATININE RATIO 7 (6-25); CREATININE, SERUM 1.03 mg/dL (0.72-1.25); EST GLOMERULAR FILTRATION RATE > 60 ML/MIN (60-)
--- NOTE | 2020-02-22 13:41 | Diagnostic Imaging Report ---
CT of the abdomen and pelvis. Comparison: 05/20/2019 Clinical History: Acute abdomen Technique: Helical CT scan of the abdomen and pelvis was performed. Intravenous contrast administration was utilized. Oral contrast administration was not utilized. Coronal and sagittal reconstructions were generated from the raw data. Multiple images were submitted for interpretation. This exam was performed according to our departmental dose-optimization program which includes automated exposure control, adjustment of the mA and/or kV according to patient size Discussion: Inferior chest: Unremarkable. Liver: Multiple low-density areas in the liver suggestive of liver cysts are unchanged. No other abnormality. Spleen: Unremarkable Pancreas: Unremarkable Biliary tree and gallbladder: Unremarkable Adrenal glands: Unremarkable Kidneys and ureters: Multiple bilateral cortical renal cysts are unchanged. Vasculature: Unremarkable except for atherosclerosis. Lymph nodes: No lymphadenopathy Bowel: Unremarkable Pelvis: Urinary bladder is unremarkable. Prostate unremarkable. Seminal vesicles unremarkable. Pelvic wall unremarkable. Peritoneum: Unremarkable Perineal compartments: unremarkable. Fluid: No free fluid Bones: Status post laminectomy and posterior spinal fusion at L4 level. Donor site identified in the right posterior superior iliac spine. Body wall: Small umbilical hernia. Impression: No acute abnormality to explain the clinical suspicion of acute abdomen. Other minor abnormalities in the liver and kidneys are unchanged from the previous CT. Signed by: Oswaldo Pedro MD on 02/22/2020 1:38 PM
== END ==
LOC: CT 11:27
PROVIDERS: ATTEND Family Medicine
DX: R10.0 Acute abdomen (principal)
CPT/HCPCS: 36415; 74177; 82565; 84520; Q9967

== ENCOUNTER 2020-12-28 10:34 | Inpatient (IN) | payer MEDICARE, OTHER ==
[~2020-12-28] VITALS: Ht 195.6 cm; Wt 108.7 kg
[~2020-12-28 10:34] MED LIST changes: -IOPAMIDOL 370 MG/ML 200 ML INFUS..BTL INJ ONE; -SODIUM CHLORIDE 0.9% 50ML 50 ML ONE
[2020-12-28] MEDS ORDERED: MORPHINE SULFATE INJ 2 MG/ML SYR IV PRN (11:00)
[2020-12-28 11:10] LABS: BASOPHILS # (AUTO) 0.1 (0.0-0.1); BASOPHILS % 0.6 % (0.0-1.0); EOSINOPHILS # (AUTO) 0.1 (0.0-0.4); EOSINOPHILS % 1.1 % (0.0-6.0); HEMATOCRIT 35.7 % (38.2-49.6); HEMOGLOBIN 12.3 g/dL (14.0-18.0); MEAN CORPUSCULAR HEMOGLOBIN 32.3 pg (28-32); MEAN CORPUSCULAR HGB CONC 34.5 g/dL (31-35); MEAN CORPUSCULAR VOLUME 93.7 fL (81-99); MONOCYTES # (AUTO) 1.3 (0.2-0.8); MONOCYTES % 11.8 % (4.4-11.3); NEUTROPHILS # (AUTO) 7.1 (2.1-6.9); PLATELET COUNT 231 x10e3/uL (140-360); RED BLOOD COUNT 3.81 x10e6/uL (4.3-5.7); RED CELL DISTRIBUTION WIDTH 12.5 % (11.7-14.4)
[2020-12-28] MEDS: ONDANSETRON HCL INJ 2MG/ML 2ML 2 MG/ML VIAL IV PRN ×2 (11:30→19:15)
[2020-12-28] MEDS: PIPERACILLIN/TAZOBACTAM 3.375 GM in SODIUM CHLORIDE 0.9% 50ML 50 ML IV SCH ×2 (11:30→18:27)
[2020-12-28] MEDS: MORPHINE SULFATE INJ 4 MG/ML INJ 1ML IV PRN ×3 (11:30→19:15)
[2020-12-28 11:31] LABS: ALANINE AMINOTRANSFERASE 18 IU/L (0-55); ALBUMIN/GLOBULIN RATIO 1.2 (0.8-2.0); ALKALINE PHOSPHATASE 51 IU/L (40-150); BLOOD UREA NITROGEN 10 mg/dL (7-26); BUN/CREATININE RATIO 13 (6-25); CALCIUM 8.8 mg/dL (8.4-10.2); CARBON DIOXIDE 24 mmol/L (22-29); CHLORIDE 97 mmol/L (98-107); EST GLOMERULAR FILTRATION RATE > 60 ML/MIN (60-); GLUCOSE 118 mg/dL (74-118); SODIUM 131 mmol/L (136-145)
[2020-12-28] MEDS ORDERED: MOVANTIK25 MG PO (11:49)
[2020-12-28] MEDS ORDERED: NEURONTIN400 MG PO (11:49)
[2020-12-28] MEDS ORDERED: OXYCODONE HCL20 M1 PO (11:49)
[2020-12-28] MEDS ORDERED: DYMISTA NASAL S23 GM INH (11:49)
[2020-12-28 12:56] VITALS: BP 123/68
[2020-12-28 14:47] VITALS: BP 123/68
[2020-12-28] MEDS ORDERED: SODIUM CHLORIDE 0.9% 50ML 50 ML ONE (15:43)
[2020-12-28] MEDS ORDERED: PIPERACILLIN/TAZOBACTAM 3.375 GM VIAL ONE (15:43)
[2020-12-28 16:28] VITALS: BP 115/60
[2020-12-28] MEDS ORDERED: SODIUM CHLORIDE 0.9% 250ML 250 ML ONE (18:08)
[2020-12-28 19:38] VITALS: BP 115/68
[2020-12-28 20:00] VITALS: BP 115/68
[2020-12-29] VITALS (8 sets, daily range): BP systolic 114–128; BP diastolic 55–78
[2020-12-29] MEDS ORDERED: SODIUM CHLORIDE 0.9% 50ML 50 ML ONE ×5 (00:10→23:46)
[2020-12-29] MEDS ORDERED: PIPERACILLIN/TAZOBACTAM 3.375 GM VIAL ONE ×5 (00:10→23:46)
[2020-12-29] MEDS: PIPERACILLIN/TAZOBACTAM 3.375 GM in SODIUM CHLORIDE 0.9% 50ML 50 ML IV SCH ×5 (00:26→23:44)
[2020-12-29] MEDS: ONDANSETRON HCL INJ 2MG/ML 2ML 2 MG/ML VIAL IV PRN ×2 (01:12→22:19)
[2020-12-29] MEDS: MORPHINE SULFATE INJ 4 MG/ML INJ 1ML IV PRN ×4 (01:12→22:19)
[2020-12-29 06:11] LABS: BASOPHILS # (AUTO) 0.1 (0.0-0.1); BASOPHILS % 0.8 % (0.0-1.0); EOSINOPHILS # (AUTO) 0.2 (0.0-0.4); EOSINOPHILS % 1.9 % (0.0-6.0); HEMATOCRIT 33.6 % (38.2-49.6); HEMOGLOBIN 11.4 g/dL (14.0-18.0); LYMPHOCYTES # (AUTO) 1.8 (1.0-3.2); LYMPHOCYTES % 23.1 % (18.0-39.1); MEAN CORPUSCULAR HEMOGLOBIN 32.2 pg (28-32); MEAN CORPUSCULAR HGB CONC 33.9 g/dL (31-35); MEAN CORPUSCULAR VOLUME 94.9 fL (81-99); MONOCYTES # (AUTO) 0.9 (0.2-0.8); MONOCYTES % 11.4 % (4.4-11.3); NEUTROPHILS # (AUTO) 4.9 (2.1-6.9); NEUTROPHILS % 62.4 % (38.7-80.0); PLATELET COUNT 214 x10e3/uL (140-360); RED BLOOD COUNT 3.54 x10e6/uL (4.3-5.7); RED CELL DISTRIBUTION WIDTH 12.4 % (11.7-14.4)
[2020-12-29] MEDS ORDERED: TIZANIDINE HCL 4 MG TAB PO PRN (06:15)
[2020-12-29] MEDS ORDERED: FENTANYL 50 MCG/HR PATCH TOP PRN (06:15)
[2020-12-29 06:24] LABS: ALANINE AMINOTRANSFERASE 15 IU/L (0-55); ALBUMIN 3.4 g/dL (3.5-5.0); ALBUMIN/GLOBULIN RATIO 1.1 (0.8-2.0); ALKALINE PHOSPHATASE 43 IU/L (40-150); ANION GAP 13.2 mmol/L (8-16); BLOOD UREA NITROGEN 8 mg/dL (7-26); BUN/CREATININE RATIO 10 (6-25); CALCIUM 8.5 mg/dL (8.4-10.2); CARBON DIOXIDE 25 mmol/L (22-29); CHLORIDE 102 mmol/L (98-107); CREATININE, SERUM 0.77 mg/dL (0.72-1.25); EST GLOMERULAR FILTRATION RATE > 60 ML/MIN (60-); GLUCOSE 113 mg/dL (74-118); POTASSIUM 4.2 mmol/L (3.5-5.1); SODIUM 136 mmol/L (136-145)
[2020-12-29] MEDS: GABAPENTIN 300 MG CAP PO SCH (09:44)
[2020-12-29] MEDS: MUPIROCIN 2% OINT 22 GM TUBE TOP SCH ×2 (09:44→16:59)
[2020-12-29] MEDS: LISINOPRIL 2.5 MG TAB PO SCH ×2 (09:44→16:59)
[2020-12-29] MEDS: ASPIRIN 81 MG CHEW TAB PO SCH (09:44)
[2020-12-29 10:48] LABS: CHOL/HDL RATIO 4.8 (3.9-4.7)
[2020-12-29 11:07] LABS: THYROID STIMULATING HORMONE 0.548 uIU/mL (0.350-4.940)
[2020-12-29] MEDS ORDERED: SODIUM CHLORIDE 0.9% 100 ML ONE (16:38)
[2020-12-29] MEDS ORDERED: IOPAMIDOL 370 MG/ML 200 ML INFUS..BTL INJ ONE (16:39)
[2020-12-29] MEDS: Azelastine/Fluticasone (Dymista Nasal Spray) INH SCH (18:15)
[2020-12-30] VITALS (8 sets, daily range): BP systolic 116–145; BP diastolic 68–76
[2020-12-30] MEDS ORDERED: PIPERACILLIN/TAZOBACTAM 3.375 GM VIAL ONE ×4 (05:00→22:31)
[2020-12-30] MEDS ORDERED: SODIUM CHLORIDE 0.9% 50ML 50 ML ONE ×4 (05:02→22:32)
[2020-12-30] MEDS: PIPERACILLIN/TAZOBACTAM 3.375 GM in SODIUM CHLORIDE 0.9% 50ML 50 ML IV SCH ×3 (05:30→17:56)
[2020-12-30] MEDS: MORPHINE SULFATE INJ 4 MG/ML INJ 1ML IV PRN ×2 (05:31→17:04)
[2020-12-30] MEDS: ONDANSETRON HCL INJ 2MG/ML 2ML 2 MG/ML VIAL IV PRN (05:31)
[2020-12-30] MEDS: Azelastine/Fluticasone (Dymista Nasal Spray) INH SCH ×2 (07:00→18:56)
[2020-12-30] MEDS: GABAPENTIN 300 MG CAP PO SCH (09:10)
[2020-12-30] MEDS: ASPIRIN 81 MG CHEW TAB PO SCH (09:10)
[2020-12-30] MEDS: MUPIROCIN 2% OINT 22 GM TUBE TOP SCH ×2 (09:10→17:03)
[2020-12-30] MEDS: LISINOPRIL 2.5 MG TAB PO SCH ×2 (09:10→17:03)
[2020-12-30] MEDS: OXYCODONE HCL IR 5 MG TAB PO SCH ×3 (11:05→22:28)
[2020-12-31] VITALS (9 sets, daily range): BP systolic 116–132; BP diastolic 66–87
[2020-12-31] MEDS: PIPERACILLIN/TAZOBACTAM 3.375 GM in SODIUM CHLORIDE 0.9% 50ML 50 ML IV SCH ×5 (01:01→23:57)
[2020-12-31] MEDS: MORPHINE SULFATE INJ 4 MG/ML INJ 1ML IV PRN ×3 (02:51→20:04)
[2020-12-31] MEDS: ONDANSETRON HCL INJ 2MG/ML 2ML 2 MG/ML VIAL IV PRN ×3 (02:51→20:04)
[2020-12-31] MEDS ORDERED: PIPERACILLIN/TAZOBACTAM 3.375 GM VIAL ONE ×4 (04:17→23:28)
[2020-12-31] MEDS ORDERED: SODIUM CHLORIDE 0.9% 50ML 50 ML ONE ×4 (04:31→23:30)
[2020-12-31] MEDS: OXYCODONE HCL IR 5 MG TAB PO SCH ×4 (04:47→23:00)
[2020-12-31] MEDS: Azelastine/Fluticasone (Dymista Nasal Spray) INH SCH ×2 (07:00→18:18)
[2020-12-31] MEDS: ASPIRIN 81 MG CHEW TAB PO SCH (08:04)
[2020-12-31] MEDS: GABAPENTIN 300 MG CAP PO SCH (08:05)
[2020-12-31] MEDS: MUPIROCIN 2% OINT 22 GM TUBE TOP SCH ×2 (08:05→16:19)
[2020-12-31] MEDS: LISINOPRIL 2.5 MG TAB PO SCH ×2 (08:07→16:21)
[2021-01-01] VITALS: BP 116/72
[2021-01-01 04:00] VITALS: BP 125/84
[2021-01-01] MEDS: OXYCODONE HCL IR 5 MG TAB PO SCH ×3 (05:00→11:21)
[2021-01-01] MEDS ORDERED: PIPERACILLIN/TAZOBACTAM 3.375 GM VIAL ONE ×2 (05:21→11:29)
[2021-01-01] MEDS ORDERED: SODIUM CHLORIDE 0.9% 50ML 50 ML ONE ×2 (05:22→11:30)
[2021-01-01] MEDS: PIPERACILLIN/TAZOBACTAM 3.375 GM in SODIUM CHLORIDE 0.9% 50ML 50 ML IV SCH ×2 (05:28→11:21)
[2021-01-01] MEDS: Azelastine/Fluticasone (Dymista Nasal Spray) INH SCH (07:00)
[2021-01-01] MEDS: MUPIROCIN 2% OINT 22 GM TUBE TOP SCH (08:06)
[2021-01-01] MEDS: GABAPENTIN 300 MG CAP PO SCH (08:06)
[2021-01-01] MEDS: ASPIRIN 81 MG CHEW TAB PO SCH (08:06)
[2021-01-01] MEDS: MORPHINE SULFATE INJ 4 MG/ML INJ 1ML IV PRN (08:07)
[2021-01-01] MEDS: ONDANSETRON HCL INJ 2MG/ML 2ML 2 MG/ML VIAL IV PRN (08:07)
[2021-01-01 08:14] VITALS: BP 128/70
[2021-01-01] MEDS: LISINOPRIL 2.5 MG TAB PO SCH (09:02)
[2021-01-01 09:32] VITALS: BP 128/70
[2021-01-01 11:30] VITALS: BP 124/87
== END 2021-01-01 13:15 | disposition home or self-care (01) | DRG 571 ==
LOC: ER 10:38 → ERHOLD 12:19 → MED/SURG3 12:46
PROVIDERS: ADMIT Family Medicine; ATTEND Family Medicine
PROC: 0JBQ0ZZ Excision of Right Foot Subcutaneous Tissue and Fascia, Open Approach (ICD-10-PCS; principal; 2020-12-31)
PROC: 0J9Q3ZZ Drainage of Right Foot Subcutaneous Tissue and Fascia, Percutaneous Approach (ICD-10-PCS; 2020-12-31)
DX: L03.115 Cellulitis of right lower limb (principal); L02.611 Cutaneous abscess of right foot; Q25.43 Congenital aneurysm of aorta; I11.0 Hypertensive heart disease with heart failure; I50.9 Heart failure, unspecified; I25.10 Atherosclerotic heart disease of native coronary artery without angina pectoris; I25.2 Old myocardial infarction; B35.1 Tinea unguium; B35.3 Tinea pedis; E11.9 Type 2 diabetes mellitus without complications; E78.5 Hyperlipidemia, unspecified; Z96.651 Presence of right artificial knee joint; Z82.49 Family history of ischemic heart disease and other diseases of the circulatory system; Z84.89 Family history of other specified conditions; Z79.82 Long term (current) use of aspirin; L97.512 Non-pressure chronic ulcer of other part of right foot with fat layer exposed; F17.210 Nicotine dependence, cigarettes, uncomplicated; I25.82 Chronic total occlusion of coronary artery
CPT/HCPCS: 36415; 71275; 75635; 80053; 80061; 83036; 84443; 85025; 93306; 93925; 99284; J2270; J2405; J2543; J7050; Q9967; U0002

== ENCOUNTER → 2021-08-06 | Outpatient (CLI) | payer MEDICARE ==
[~2021-08-06] MED LIST changes: +DYMISTA NASAL S23 GM INH; +IOPAMIDOL 370 MG/ML 200 ML INFUS..BTL INJ ONE; +MOVANTIK25 MG PO; +NEURONTIN400 MG PO; +OXYCODONE HCL20 M1 PO; +SODIUM CHLORIDE 0.9% 50ML 50 ML ONE
[2021-08-06 14:25] LABS: CREATININE, SERUM 0.89 mg/dL (0.72-1.25)
== END ==
LOC: CT 13:39
PROVIDERS: ATTEND Internal Medicine Cardiovascular Disease
DX: I77.810 Thoracic aortic ectasia (principal)
CPT/HCPCS: 36415; 71275; 82565; 84520; Q9967

== ENCOUNTER 2021-08-21 22:15 | Emergency (ER) | payer MEDICARE ==
[~2021-08-21] VITALS: Ht 195.6 cm; Wt 108.4 kg
[~2021-08-21 22:15] MED LIST changes: -IOPAMIDOL 370 MG/ML 200 ML INFUS..BTL INJ ONE; -SODIUM CHLORIDE 0.9% 50ML 50 ML ONE
[2021-08-21] MEDS ORDERED: ONDANSETRON HCL INJ 2MG/ML 2ML 2 MG/ML VIAL IV STA (22:59)
[2021-08-21 23:44] LABS: BASOPHILS # (AUTO) 0.1 (0.0-0.1); BASOPHILS % 0.9 % (0.0-1.0); EOSINOPHILS # (AUTO) 0.3 (0.0-0.4); EOSINOPHILS % 3.1 % (0.0-6.0); HEMATOCRIT 36.1 % (38.2-49.6); HEMOGLOBIN 12.6 g/dL (14.0-18.0); LYMPHOCYTES # (AUTO) 2.1 (1.0-3.2); LYMPHOCYTES % 26.4 % (18.0-39.1); MEAN CORPUSCULAR HEMOGLOBIN 33.1 pg (28-32); MEAN CORPUSCULAR HGB CONC 34.9 g/dL (31-35); MEAN CORPUSCULAR VOLUME 94.8 fL (81-99); MONOCYTES # (AUTO) 0.9 (0.2-0.8); MONOCYTES % 10.5 % (4.4-11.3); NEUTROPHILS # (AUTO) 4.7 (2.1-6.9); NEUTROPHILS % 58.6 % (38.7-80.0); PLATELET COUNT 295 x10e3/uL (140-360); RED BLOOD COUNT 3.81 x10e6/uL (4.3-5.7); RED CELL DISTRIBUTION WIDTH 11.8 % (11.7-14.4)
[2021-08-22 00:02] LABS: ALBUMIN 4.1 g/dL (3.5-5.0); ALBUMIN/GLOBULIN RATIO 1.2 (0.8-2.0); ANION GAP 18.3 mmol/L (8-16); CALCIUM 9.3 mg/dL (8.4-10.2); CREATININE, SERUM 0.87 mg/dL (0.72-1.25); POTASSIUM 4.3 mmol/L (3.5-5.1)
[2021-08-22 00:09] LABS: CREATINE KINASE MB 1.8 ng/mL (0-5.0)
[2021-08-22] MEDS ORDERED: SODIUM CHLORIDE 0.9% 1000ML 1,000 ML IV STA (00:29)
[2021-08-22] MEDS ORDERED: ZOFRAN4 MG PO (01:16)
[2021-08-22 01:59] VITALS: BP 122/76
== END 2021-08-22 02:10 | disposition home or self-care (01) ==
LOC: ER 23:02
DX: E87.1 Hypo-osmolality and hyponatremia (principal); R11.2 Nausea with vomiting, unspecified; I10 Essential (primary) hypertension; I50.9 Heart failure, unspecified; I25.10 Atherosclerotic heart disease of native coronary artery without angina pectoris; M54.9 Dorsalgia, unspecified; G89.29 Other chronic pain
CPT/HCPCS: 36415; 80053; 82550; 82553; 84484; 85025; 93005; 99283; J2405; J7030

== ENCOUNTER 2021-11-23 15:19 | Emergency (ER) | payer MEDICARE ==
[~2021-11-23] VITALS: Ht 195.6 cm; Wt 108.4 kg
[~2021-11-23 15:19] MED LIST changes: +ZOFRAN4 MG PO
[2021-11-23] MEDS ORDERED: PIPERACILLIN/TAZOBACTAM 4.5 GM in SODIUM CHLORIDE 0.9% 100 ML IV STA (16:20)
[2021-11-23] MEDS ORDERED: Vancomycin IV 1 GM in SODIUM CHLORIDE 0.9% 250ML 250 ML IV STA (16:20)
[2021-11-23 16:41] LABS: BASOPHILS # (AUTO) 0.1 (0.0-0.1); BASOPHILS % 0.6 % (0.0-1.0); EOSINOPHILS # (AUTO) 0.1 (0.0-0.4); EOSINOPHILS % 0.6 % (0.0-6.0); HEMATOCRIT 37.9 % (38.2-49.6); HEMOGLOBIN 13.2 g/dL (14.0-18.0); LYMPHOCYTES # (AUTO) 1.5 (1.0-3.2); LYMPHOCYTES % 12.4 % (18.0-39.1); MEAN CORPUSCULAR HEMOGLOBIN 32.8 pg (28-32); MEAN CORPUSCULAR HGB CONC 34.8 g/dL (31-35); MEAN CORPUSCULAR VOLUME 94.3 fL (81-99); MONOCYTES # (AUTO) 0.9 (0.2-0.8); MONOCYTES % 7.4 % (4.4-11.3); NEUTROPHILS # (AUTO) 9.3 (2.1-6.9); NEUTROPHILS % 78.6 % (38.7-80.0); PLATELET COUNT 228 x10e3/uL (140-360); RED BLOOD COUNT 4.02 x10e6/uL (4.3-5.7); RED CELL DISTRIBUTION WIDTH 12.7 % (11.7-14.4)
[2021-11-23 16:59] LABS: ALBUMIN 4.2 g/dL (3.5-5.0); ALBUMIN/GLOBULIN RATIO 1.1 (0.8-2.0); ANION GAP 18.7 mmol/L (8-16); CALCIUM 9.4 mg/dL (8.4-10.2); CREATININE, SERUM 0.86 mg/dL (0.72-1.25); POTASSIUM 4.7 mmol/L (3.5-5.1)
[2021-11-23] MEDS ORDERED: SODIUM CHLORIDE 0.9% 50ML 50 ML ONE (17:00)
[2021-11-23] MEDS ORDERED: IOPAMIDOL 370 MG/ML 200 ML INFUS..BTL INJ ONE (17:00)
[2021-11-23] MEDS ORDERED: ACETAMINOPHEN 1000 MG/100 ML IV STA (18:19)
[2021-11-23] MEDS ORDERED: ACETAMINOPHEN 1000 MG/100 ML 100 ML IV ONE (18:34)
[2021-11-23] MEDS ORDERED: IBUPROFEN 800MG/ 200ML 800 MG in SODIUM CHLORIDE 0.9% 250ML 250 ML IV ONE (18:45)
[2021-11-23 19:18] LABS: CLARITY,URINE CLEAR (CLEAR); COLOR,URINE YELLOW (YELLOW); KETONES,URINE NEGATIVE (NEGATIVE); LEUKOCYTE ESTERASE ,URINE NEGATIVE (NEGATIVE); NITRITE,URINE NEGATIVE (NEGATIVE); PROTEIN,URINE DIPSTICK NEGATIVE (NEGATIVE); URINE UROBILINOGEN 0.2 mg/dL (0.2 - 1)
[2021-11-23 19:20] VITALS: BP 166/96
[2021-11-23 19:22] LABS: BACTERIA,URINE FEW /HPF; WBC,URINE (MAN) 0-5 /HPF (0-5)
[2021-11-23 19:23] LABS: AMORPHOUS SEDIMENT,URINE MODERATE (FEW); EPITHELIAL CELLS,URINE FEW /LPF
== END 2021-11-23 19:32 | disposition other institution (70) ==
LOC: ER 15:46
DX: R50.9 Fever, unspecified (principal); G03.9 Meningitis, unspecified; R11.2 Nausea with vomiting, unspecified; R51.9 Headache, unspecified; R10.31 Right lower quadrant pain; R05.9 Cough, unspecified; I10 Essential (primary) hypertension; I50.9 Heart failure, unspecified; I25.10 Atherosclerotic heart disease of native coronary artery without angina pectoris; M48.02 Spinal stenosis, cervical region; M48.061 Spinal stenosis, lumbar region without neurogenic claudication; G89.29 Other chronic pain; Z20.822 Contact with and (suspected) exposure to COVID-19; Z96.651 Presence of right artificial knee joint; F17.210 Nicotine dependence, cigarettes, uncomplicated
CPT/HCPCS: 36415; 51700; 70450; 71045; 72125; 72132; 80053; 81001; 83605; 84484; 85025; 87040; 87086; 93005; 99285; J0131; J2543; J3370; J7050 ×2; Q9967; U0002

== ENCOUNTER 2022-03-03 01:06 | Emergency (ER) | payer MEDICARE ==
[~2022-03-03] VITALS: Ht 195.6 cm; Wt 108.4 kg
[2022-03-03] MEDS ORDERED: SODIUM CHLORIDE 0.9% 1000ML 1,000 ML IV ONE (01:15)
[2022-03-03] MEDS ORDERED: ACETAMINOPHEN 325 MG TAB PO ONE (01:15)
[2022-03-03] MEDS ORDERED: CEFTRIAXONE 1 GM VIAL ONE (01:30)
[2022-03-03 01:39] LABS: BASOPHILS # (AUTO) 0.1 (0.0-0.1); BASOPHILS % 0.8 % (0.0-1.0); EOSINOPHILS # (AUTO) 0.2 (0.0-0.4); EOSINOPHILS % 3.1 % (0.0-6.0); HEMATOCRIT 40.4 % (38.2-49.6); HEMOGLOBIN 14.2 g/dL (14.0-18.0); LYMPHOCYTES # (AUTO) 0.8 (1.0-3.2); MEAN CORPUSCULAR HEMOGLOBIN 33.6 pg (28-32); MEAN CORPUSCULAR HGB CONC 35.1 g/dL (31-35); MEAN CORPUSCULAR VOLUME 95.7 fL (81-99); MONOCYTES # (AUTO) 0.6 (0.2-0.8); MONOCYTES % 8.9 % (4.4-11.3); NEUTROPHILS # (AUTO) 4.7 (2.1-6.9); NEUTROPHILS % 73.6 % (38.7-80.0); PLATELET COUNT 197 x10e3/uL (140-360); RED BLOOD COUNT 4.22 x10e6/uL (4.3-5.7); RED CELL DISTRIBUTION WIDTH 12.8 % (11.7-14.4)
[2022-03-03 01:45] LABS: ALBUMIN 4.2 g/dL (3.5-5.0); ALBUMIN/GLOBULIN RATIO 1.4 (0.8-2.0); ANION GAP 13.2 mmol/L (8-16); CALCIUM 9.1 mg/dL (8.4-10.2); CREATININE, SERUM 1.1 mg/dL (0.72-1.25); POTASSIUM 4.2 mmol/L (3.5-5.1)
[2022-03-03] MEDS ORDERED: IBUPROFEN 600 MG TAB PO STA (02:19)
[2022-03-03] MEDS ORDERED: BEBTELOVIMAB 175 MG INJ IV ONE ×2 (02:30→02:31)
[2022-03-03 02:55] VITALS: BP 125/72
== END 2022-03-03 02:55 | disposition home or self-care (01) ==
LOC: ER 01:10
DX: R50.9 Fever, unspecified (principal); U07.1 COVID-19; R51.9 Headache, unspecified; I10 Essential (primary) hypertension; I50.9 Heart failure, unspecified; I25.10 Atherosclerotic heart disease of native coronary artery without angina pectoris; M54.9 Dorsalgia, unspecified; G89.29 Other chronic pain; Z96.651 Presence of right artificial knee joint
CPT/HCPCS: 36415; 71045; 80053; 83605; 85025; 87040; 99284; J0696; J7030; U0002

== ENCOUNTER 2022-04-21 08:38 | Emergency (ER) | payer MEDICARE ==
[~2022-04-21] VITALS: Ht 195.6 cm; Wt 108.4 kg
[2022-04-21] MEDS ORDERED: SODIUM CHLORIDE 0.9% 1000ML 1,000 ML IV STA (09:03)
[2022-04-21] MEDS ORDERED: ONDANSETRON HCL INJ 2MG/ML 2ML 2 MG/ML VIAL IV PRN (09:15)
[2022-04-21 09:24] LABS: BASOPHILS # (AUTO) 0.1 (0.0-0.1); BASOPHILS % 0.5 % (0.0-1.0); EOSINOPHILS # (AUTO) 0.1 (0.0-0.4); EOSINOPHILS % 0.9 % (0.0-6.0); HEMATOCRIT 39.7 % (38.2-49.6); HEMOGLOBIN 14.2 g/dL (14.0-18.0); LYMPHOCYTES # (AUTO) 1.5 (1.0-3.2); MEAN CORPUSCULAR HEMOGLOBIN 32.1 pg (28-32); MEAN CORPUSCULAR HGB CONC 35.8 g/dL (31-35); MEAN CORPUSCULAR VOLUME 89.6 fL (81-99); MONOCYTES # (AUTO) 0.6 (0.2-0.8); MONOCYTES % 6.5 % (4.4-11.3); NEUTROPHILS # (AUTO) 7.5 (2.1-6.9); NEUTROPHILS % 76.7 % (38.7-80.0); PLATELET COUNT 247 x10e3/uL (140-360); RED BLOOD COUNT 4.43 x10e6/uL (4.3-5.7); RED CELL DISTRIBUTION WIDTH 12.2 % (11.7-14.4)
[2022-04-21 09:39] LABS: ALBUMIN 4.2 g/dL (3.5-5.0); ALBUMIN/GLOBULIN RATIO 1.2 (0.8-2.0); CREATININE, SERUM 0.75 mg/dL (0.72-1.25)
[2022-04-21] MEDS ORDERED: FENTANYL CITRATE/PF 100MCG/2 ML INJ IV PRN (10:00)
[2022-04-21] MEDS ORDERED: IOPAMIDOL 370 MG/ML 100 ML INFUS..BTL INJ ONE (10:08)
[2022-04-21 11:17] LABS: CLARITY,URINE CLEAR (CLEAR); COLOR,URINE YELLOW (YELLOW); KETONES,URINE NEGATIVE (NEGATIVE); LEUKOCYTE ESTERASE ,URINE NEGATIVE (NEGATIVE); NITRITE,URINE NEGATIVE (NEGATIVE); PROTEIN,URINE DIPSTICK NEGATIVE (NEGATIVE); URINE UROBILINOGEN 0.2 mg/dL (0.2 - 1)
[2022-04-21 11:21] LABS: BACTERIA,URINE FEW /HPF; EPITHELIAL CELLS,URINE FEW /LPF; RBC,URINE 0-5 /HPF (0-5); WBC,URINE (MAN) 0-5 /HPF (0-5)
[2022-04-21] MEDS ORDERED: ONDANSETRON ODT4 MG PO (11:56)
[2022-04-21 14:23] VITALS: BP 134/85
== END 2022-04-21 12:36 | disposition home or self-care (01) ==
LOC: ER 09:00
DX: R11.0 Nausea (principal); R10.84 Generalized abdominal pain; I10 Essential (primary) hypertension; I50.9 Heart failure, unspecified; I25.10 Atherosclerotic heart disease of native coronary artery without angina pectoris; M54.9 Dorsalgia, unspecified; G89.29 Other chronic pain; I25.2 Old myocardial infarction; Z96.651 Presence of right artificial knee joint; Z20.822 Contact with and (suspected) exposure to COVID-19
CPT/HCPCS: 36415; 74177; 80053; 81001; 83690; 84484; 85025; 93005; 99284; J2405; J7030; Q9967; U0002

== ENCOUNTER 2024-05-02 13:37 | Emergency (ER) | payer MEDICARE ==
[~2024-05-02] VITALS: Ht 195.6 cm; Wt 108.4 kg
[~2024-05-02 13:37] MED LIST changes: +ONDANSETRON ODT4 MG PO
[2024-05-02 13:48] VITALS: PULSE 84; RESP 18; TEMP 98.1
[2024-05-02] MEDS: ONDANSETRON HCL INJ 2MG/ML 2ML 2 MG/ML VIAL IV ONE (14:28)
[2024-05-02 14:44] LABS: BASOPHILS # (AUTO) 0.1 (0.0-0.1); BASOPHILS % 0.7 % (0.0-1.0); EOSINOPHILS # (AUTO) 0.1 (0.0-0.4); HEMOGLOBIN 13.8 g/dL (14.0-18.0); LYMPHOCYTES # (AUTO) 1.3 (1.0-3.2); LYMPHOCYTES % 18.3 % (18.0-39.1); MEAN CORPUSCULAR HEMOGLOBIN 32.5 pg (28-32); MEAN CORPUSCULAR HGB CONC 34.5 g/dL (31-35); MEAN CORPUSCULAR VOLUME 94.3 fL (81-99); MONOCYTES # (AUTO) 0.5 (0.2-0.8); MONOCYTES % 7.3 % (4.4-11.3); NEUTROPHILS # (AUTO) 5.1 (2.1-6.9); NEUTROPHILS % 72.3 % (38.7-80.0); PLATELET COUNT 233 x10e3/uL (140-360); RED BLOOD COUNT 4.24 x10e6/uL (4.3-5.7); RED CELL DISTRIBUTION WIDTH 12.8 % (11.7-14.4); WHITE BLOOD COUNT 6.99 x10e3/uL (4.8-10.8)
[2024-05-02 14:47] LABS: INR 0.87; PROTHROMBIN TIME 12.5 seconds (11.9-14.5)
[2024-05-02 14:48] LABS: PARTIAL THROMBOPLASTIN TIME 32.1 seconds (23.8-35.5)
[2024-05-02 14:57] LABS: ALBUMIN 4.3 g/dL (3.5-5.0); ALBUMIN/GLOBULIN RATIO 1.3 (0.8-2.0); ANION GAP 16.2 mmol/L (8-16); BILIRUBIN,TOTAL 0.5 mg/dL (0.2-1.2); CALCIUM 9.7 mg/dL (8.4-10.2); CREATININE, SERUM 0.91 mg/dL (0.72-1.25); MAGNESIUM 1.9 MG/DL (1.3-2.1); POTASSIUM 4.2 mmol/L (3.5-5.1); TOTAL PROTEIN 7.6 g/dL (6.5-8.1)
[2024-05-02 15:16] LABS: INFLUENZAE A&B ANTIGEN (RAPID) NEGATIVE (NEGATIVE); RESPIRATORY SYNC. VIRUS NEGATIVE (NEGATIVE)
[2024-05-02 15:20] LABS: TROPONIN I 0.011 ng/mL (0-0.300)
[2024-05-02] MEDS ORDERED: IOPAMIDOL 370 MG/ML 100 ML INFUS..BTL INJ ONE (16:12)
[2024-05-02] MEDS: SODIUM CHLORIDE 0.9% 500ML 500 ML IV ONE (17:11)
[2024-05-02 17:28] VITALS: BP 138/72; PULSE 72; RESP 18; O2SAT 96
== END 2024-05-02 17:30 | disposition home or self-care (01) ==
LOC: ER 14:11
DX: R06.00 Dyspnea, unspecified (principal); I50.9 Heart failure, unspecified; I25.10 Atherosclerotic heart disease of native coronary artery without angina pectoris; M19.09 Primary osteoarthritis, other specified site; M54.9 Dorsalgia, unspecified; G89.29 Other chronic pain; Z11.52 Encounter for screening for COVID-19; R94.31 Abnormal electrocardiogram [ECG] [EKG]; I25.2 Old myocardial infarction
CPT/HCPCS: 36415; 71045; 71260; 80053; 82550; 83735; 83880; 84484; 85025; 85379; 85610; 85730; 87400; 87420; 93005; 99284; J2405; J7040; Q9967; U0002

== ENCOUNTER 2024-09-14 20:18 | Emergency (ER) | payer MEDICARE ==
[~2024-09-14] VITALS: Ht 195.6 cm; Wt 112.5 kg
[2024-09-14 20:26] VITALS: PULSE 96; RESP 20; TEMP 97.9
[2024-09-14 20:47] LABS: BASOPHILS # (AUTO) 0.1 (0.0-0.1); BASOPHILS % 0.8 % (0.0-1.0); EOSINOPHILS # (AUTO) 0.2 (0.0-0.4); EOSINOPHILS % 3.9 % (0.0-6.0); HEMATOCRIT 36.3 % (38.2-49.6); HEMOGLOBIN 11.7 g/dL (14.0-18.0); LYMPHOCYTES # (AUTO) 1.5 (1.0-3.2); LYMPHOCYTES % 23.6 % (18.0-39.1); MEAN CORPUSCULAR HEMOGLOBIN 31.6 pg (28-32); MEAN CORPUSCULAR HGB CONC 32.2 g/dL (31-35); MEAN CORPUSCULAR VOLUME 98.1 fL (81-99); MONOCYTES # (AUTO) 0.6 (0.2-0.8); MONOCYTES % 9.5 % (4.4-11.3); NEUTROPHILS # (AUTO) 3.9 (2.1-6.9); NEUTROPHILS % 61.9 % (38.7-80.0); PLATELET COUNT 239 x10e3/uL (140-360); RED CELL DISTRIBUTION WIDTH 12.9 % (11.7-14.4); WHITE BLOOD COUNT 6.23 x10e3/uL (4.8-10.8)
[2024-09-14 21:09] LABS: ALBUMIN 4.2 g/dL (3.5-5.0); ALBUMIN/GLOBULIN RATIO 1.3 (0.8-2.0); ANION GAP 15.7 mmol/L (8-16); BILIRUBIN,TOTAL 0.5 mg/dL (0.2-1.2); CALCIUM 9.2 mg/dL (8.4-10.2); CREATININE, SERUM 1.08 mg/dL (0.72-1.25); POTASSIUM 3.7 mmol/L (3.5-5.1); TOTAL PROTEIN 7.5 g/dL (6.5-8.1)
[2024-09-14 21:20] LABS: CLARITY,URINE CLEAR (CLEAR); COLOR,URINE YELLOW (YELLOW); LEUKOCYTE ESTERASE ,URINE NEGATIVE (NEGATIVE); NITRITE,URINE NEGATIVE (NEGATIVE); PH,URINE 7 (5 - 7)
[2024-09-14 21:21] LABS: BILIRUBIN,URINE NEGATIVE (NEGATIVE); GLUCOSE, URINE NEGATIVE (NEGATIVE); KETONES,URINE NEGATIVE (NEGATIVE); PROTEIN,URINE DIPSTICK NEGATIVE (NEGATIVE); URINE UROBILINOGEN 0.2 mg/dL (0.2 - 1)
[2024-09-14] MEDS: SODIUM CHLORIDE 0.9% 1000ML 1,000 ML IV STA (21:24)
[2024-09-14 21:26] LABS: RBC,URINE 0-5 /HPF (0-5); WBC,URINE (MAN) 0-5 /HPF (0-5)
[2024-09-14] MEDS ORDERED: IOPAMIDOL 370 MG/ML 100 ML INFUS..BTL INJ ONE (21:32)
[2024-09-14 22:26] VITALS: BP 140/78; PULSE 87; RESP 16; O2SAT 100
== END 2024-09-14 22:36 | disposition home or self-care (01) ==
LOC: ER 20:22
DX: R10.32 Left lower quadrant pain (principal); I10 Essential (primary) hypertension; I50.9 Heart failure, unspecified; I25.10 Atherosclerotic heart disease of native coronary artery without angina pectoris; M54.9 Dorsalgia, unspecified; G89.29 Other chronic pain; I25.2 Old myocardial infarction; Z96.651 Presence of right artificial knee joint
CPT/HCPCS: 36415; 74177; 80053; 81001; 83690; 85025; 99284; Q9967

== ENCOUNTER 2024-09-16 06:53 | Emergency (ER) | payer MEDICARE ==
[~2024-09-16] VITALS: Ht 195.6 cm; Wt 112.5 kg
[2024-09-16 07:05] VITALS: TEMP 97.7
[2024-09-16] MEDS: ONDANSETRON HCL INJ 2MG/ML 2ML 2 MG/ML VIAL IV STA (07:40)
[2024-09-16 07:41] LABS: BASOPHILS # (AUTO) 0.1 (0.0-0.1); BASOPHILS % 0.8 % (0.0-1.0); EOSINOPHILS # (AUTO) 0.2 (0.0-0.4); HEMATOCRIT 32.8 % (38.2-49.6); HEMOGLOBIN 11.1 g/dL (14.0-18.0); LYMPHOCYTES # (AUTO) 1.2 (1.0-3.2); MEAN CORPUSCULAR HEMOGLOBIN 32.5 pg (28-32); MEAN CORPUSCULAR HGB CONC 33.8 g/dL (31-35); MEAN CORPUSCULAR VOLUME 95.9 fL (81-99); MONOCYTES # (AUTO) 0.7 (0.2-0.8); MONOCYTES % 11.3 % (4.4-11.3); NEUTROPHILS # (AUTO) 4.3 (2.1-6.9); NEUTROPHILS % 66.6 % (38.7-80.0); PLATELET COUNT 210 x10e3/uL (140-360); RED BLOOD COUNT 3.42 x10e6/uL (4.3-5.7); RED CELL DISTRIBUTION WIDTH 12.5 % (11.7-14.4)
[2024-09-16] MEDS: SODIUM CHLORIDE 0.9% 500ML 500 ML IV ONE (07:41)
[2024-09-16] MEDS: HYDROMORPHONE 1MG/1ML INJ IV STA ×3 (07:41→11:59)
[2024-09-16 07:50] LABS: INR 0.94; PARTIAL THROMBOPLASTIN TIME 23.6 seconds (23.8-35.5); PROTHROMBIN TIME 13.2 seconds (11.9-14.5)
[2024-09-16 08:00] LABS: ALBUMIN 4.2 g/dL (3.5-5.0); ALBUMIN/GLOBULIN RATIO 1.3 (0.8-2.0); ANION GAP 16.6 mmol/L (8-16); CALCIUM 9.4 mg/dL (8.4-10.2); CREATININE, SERUM 0.92 mg/dL (0.72-1.25); MAGNESIUM 1.6 MG/DL (1.3-2.1); POTASSIUM 3.6 mmol/L (3.5-5.1); TOTAL PROTEIN 7.5 g/dL (6.5-8.1)
[2024-09-16 08:04] LABS: BILIRUBIN,URINE NEGATIVE (NEGATIVE); CLARITY,URINE CLEAR (CLEAR); COLOR,URINE YELLOW (YELLOW); GLUCOSE, URINE NEGATIVE (NEGATIVE); KETONES,URINE NEGATIVE (NEGATIVE); LEUKOCYTE ESTERASE ,URINE NEGATIVE (NEGATIVE); NITRITE,URINE NEGATIVE (NEGATIVE); PH,URINE 7.5 (5 - 7); PROTEIN,URINE DIPSTICK NEGATIVE (NEGATIVE); URINE UROBILINOGEN 0.2 mg/dL (0.2 - 1)
[2024-09-16 08:06] LABS: TROPONIN I 0.007 ng/mL (0-0.300)
[2024-09-16 08:19] LABS: BACTERIA,URINE MODERATE /HPF; EPITHELIAL CELLS,URINE RARE /LPF; RBC,URINE 0-5 /HPF (0-5); WBC,URINE (MAN) 0-5 /HPF (0-5)
[2024-09-16] MEDS: METOPROLOL SUCCINATE 25 MG TAB XL PO ONE (10:00)
[2024-09-16] MEDS ORDERED: IOPAMIDOL 370 MG/ML 100 ML INFUS..BTL INJ ONE (10:42)
[2024-09-16 12:02] VITALS: BP 146/91; PULSE 82; RESP 16
[2024-09-16 13:30] VITALS: PULSE 86; RESP 16; O2SAT 100
== END 2024-09-16 13:46 | disposition other institution (70) ==
LOC: ER 06:58
DX: M96.842 Postprocedural seroma of a musculoskeletal structure following a musculoskeletal system procedure (principal); R10.32 Left lower quadrant pain; R11.0 Nausea; I10 Essential (primary) hypertension; I50.9 Heart failure, unspecified; I48.91 Unspecified atrial fibrillation; R94.31 Abnormal electrocardiogram [ECG] [EKG]
CPT/HCPCS: 36415; 71045; 74177; 80053; 81001; 82550; 83735; 83880; 84443; 84484; 85025; 85610; 85730; 87086; 93005; 99284; J1171; J2405; J7040; Q9967

== ENCOUNTER 2024-10-06 10:39 | Emergency (ER) | payer MEDICARE ==
[~2024-10-06] VITALS: Ht 195.6 cm; Wt 112.5 kg
[2024-10-06 10:43] VITALS: TEMP 98
[2024-10-06 10:56] LABS: BASOPHILS % 0.4 % (0.0-1.0); EOSINOPHILS % 0.6 % (0.0-6.0); HEMATOCRIT 34.4 % (38.2-49.6); HEMOGLOBIN 11.1 g/dL (14.0-18.0); LYMPHOCYTES # (AUTO) 0.9 (1.0-3.2); LYMPHOCYTES % 12.3 % (18.0-39.1); MEAN CORPUSCULAR HEMOGLOBIN 31.6 pg (28-32); MEAN CORPUSCULAR HGB CONC 32.3 g/dL (31-35); MONOCYTES # (AUTO) 0.3 (0.2-0.8); MONOCYTES % 4.7 % (4.4-11.3); NEUTROPHILS # (AUTO) 5.9 (2.1-6.9); NEUTROPHILS % 81.7 % (38.7-80.0); PLATELET COUNT 243 x10e3/uL (140-360); RED BLOOD COUNT 3.51 x10e6/uL (4.3-5.7); WHITE BLOOD COUNT 7.25 x10e3/uL (4.8-10.8)
[2024-10-06] MEDS: ONDANSETRON HCL INJ 2MG/ML 2ML 2 MG/ML VIAL IV STA (11:02)
[2024-10-06 11:19] VITALS: RESP 14; O2SAT 99
[2024-10-06 11:26] LABS: INR 0.99; PROTHROMBIN TIME 13.7 seconds (11.9-14.5)
[2024-10-06 11:27] LABS: PARTIAL THROMBOPLASTIN TIME 34.6 seconds (23.8-35.5)
[2024-10-06 11:33] LABS: BILIRUBIN,URINE NEGATIVE (NEGATIVE); CLARITY,URINE CLEAR (CLEAR); COLOR,URINE YELLOW (YELLOW); GLUCOSE, URINE NEGATIVE (NEGATIVE); KETONES,URINE NEGATIVE (NEGATIVE); LEUKOCYTE ESTERASE ,URINE NEGATIVE (NEGATIVE); NITRITE,URINE NEGATIVE (NEGATIVE); PH,URINE 7 (5 - 7); PROTEIN,URINE DIPSTICK NEGATIVE (NEGATIVE); URINE UROBILINOGEN 0.2 mg/dL (0.2 - 1)
[2024-10-06 11:34] LABS: ALBUMIN 3.8 g/dL (3.5-5.0); ANION GAP 16.3 mmol/L (8-16); BILIRUBIN,TOTAL 0.4 mg/dL (0.2-1.2); CALCIUM 9.3 mg/dL (8.4-10.2); CREATININE, SERUM 1.03 mg/dL (0.72-1.25); MAGNESIUM 1.9 MG/DL (1.3-2.1); TOTAL PROTEIN 7.6 g/dL (6.5-8.1)
[2024-10-06 11:37] LABS: BACTERIA,URINE FEW /HPF; EPITHELIAL CELLS,URINE FEW /LPF; WBC,URINE (MAN) 0-5 /HPF (0-5)
[2024-10-06 11:38] LABS: POTASSIUM 3.3 mmol/L (3.5-5.1)
[2024-10-06 11:40] LABS: INFLUENZA A AG NEGATIVE (NEGATIVE); INFLUENZA B AG NEGATIVE (NEGATIVE)
[2024-10-06 11:40] LABS: TROPONIN I 0.004 ng/mL (0-0.300)
[2024-10-06 11:41] LABS: CORONAVIRUS COVID-19 AG NEGATIVE (NEGATIVE)
[2024-10-06] MEDS ORDERED: IOPAMIDOL 370 MG/ML 100 ML INFUS..BTL INJ ONE (11:52)
[2024-10-06 14:47] VITALS: PULSE 96
== END 2024-10-06 16:00 | disposition home or self-care (01) ==
LOC: ER 10:43
DX: M96.842 Postprocedural seroma of a musculoskeletal structure following a musculoskeletal system procedure (principal); S22.43XA Multiple fractures of ribs, bilateral, initial encounter for closed fracture; R60.9 Edema, unspecified; I10 Essential (primary) hypertension; I50.9 Heart failure, unspecified; I48.91 Unspecified atrial fibrillation; I25.10 Atherosclerotic heart disease of native coronary artery without angina pectoris; I25.2 Old myocardial infarction; F17.210 Nicotine dependence, cigarettes, uncomplicated
CPT/HCPCS: 36415; 71045; 74177; 80053; 81001; 82550; 83690; 83735; 83880; 84484; 85025; 85610; 85730; 87086; 87428; 93005; 99284; J2405; J2470; Q9967

== ENCOUNTER 2024-10-29 13:31 | Emergency (ER) | payer MEDICARE ==
[~2024-10-29] VITALS: Ht 195.6 cm; Wt 112.5 kg
[2024-10-29 13:53] VITALS: PULSE 94; RESP 20; TEMP 98.3
[2024-10-29] MEDS ORDERED: TRAMADOL HCL 50 MG TAB ONE (15:31)
[2024-10-29] MEDS ORDERED: KETOROLAC TROMETHAMINE 30 MG/ML VIAL ONE (15:31)
[2024-10-29] MEDS: TRAMADOL HCL 50 MG TAB PO ONE (15:39)
[2024-10-29] MEDS: KETOROLAC TROMETHAMINE 30 MG/ML VIAL IM STA (15:39)
[2024-10-29 16:29] VITALS: BP 124/71; PULSE 75; RESP 17; TEMP 97.9; O2SAT 98
== END 2024-10-29 16:32 | disposition home or self-care (01) ==
LOC: ER 13:39
DX: M54.6 Pain in thoracic spine (principal); M54.50 Low back pain, unspecified; X50.1XXA Overexertion from prolonged static or awkward postures, initial encounter; Y92.89 Other specified places as the place of occurrence of the external cause; I10 Essential (primary) hypertension; I50.9 Heart failure, unspecified; I48.91 Unspecified atrial fibrillation; I25.10 Atherosclerotic heart disease of native coronary artery without angina pectoris
CPT/HCPCS: 72128; 72131; 99283; J1885